=== PATIENT | female | born 1970 | race Caucasian/White ===

== ENCOUNTER 2023-10-27 22:34 | Observation (INO) | payer OTHER ==
--- NOTE | 2023-10-27 23:27 | ERPHSYRPT ---
- History of Present Illness Time Seen by Provider: 10/27/23 23:27 Historian: patient Exam Limitations: no limitations Patient Subjective Stated Complaint: pt states she has been having rt abd and rt back pain started at approx 2000 Triage Nursing Assessment: pt alert and oriented, answers questions approp. pt ambulates into room with steady gait noted. respirations nonlabored. skin warm and dry. abd soft an nontender to light palpation. bowel sounds present x4. Physician History: The patient presents with a chief complaint of severe, stabbing pains in the side, which have since subsided to a dull ache. The pain was intense enough to disrupt her comfort, necessitating pacing. The patient denies any associated di arrhea but reports mild nausea. She also mentions experiencing acid reflux. The patient has not had a similar episode in the past, although she recalls occasional pains in the same area. The timing of the pain does not appear to be associated with food intake. The patient has a known history of hypertension and a family history of diabetes. She is currently on medication for her hypertension. She also reports suffering from significant anxiety but denies any history of cardiac events. The patient's last bowel movement was reported to be normal on the day of the consultation. In addition to the above, the patient is on a maintenance antibiotic, Septra, for recurrent urinary tract infections (UTIs) as prescribed by a urologist. She denies any current dysuria or hematuria. The patient also mentions a tendency to bleed, although it is unclear if this is related to her current complaint. Timing/Duration: today Activities at Onset: sleep Quality: sharpness, stabbing Abdominal Pain Onset Location: RUQ Pain Radiation: no radiation Severity of Pain-Max: severe Severity of Pain-Current: mild Modifying Factors: Worsens With: movement, palpation, position Associated Symptoms: heartburn, loss of appetite, nausea, No back, No chest pain, No diaphoresis, No diarrhea, No fever/chills, No vomiting Allergies/Adverse Reactions: Penicillins Allergy (Unknown, Verified 10/28/23 04:19) naproxen Allergy (Verified 10/28/23 04:19) nausea prochlorperazine [From Compazine] Allergy (Verified 10/28/23 04:19) vomiting Home Medications: ALPRAZolam [Xanax 0.25 mg] 0.5 mg PO QID 03/12/16 [History] Buspirone HCl 15 mg PO TID 03/12/16 [History] Losartan Potassium 50 mg PO DAILY 03/12/16 [History] Metoprolol Tartrate 25 mg PO DAILY 03/12/16 [History] norethindrone ac-eth estradioL [Junel 1 mg-20 Mcg Tablet] 1 ea DAILY 03/12/16 [History] Cefdinir 300 mg PO DAILY 10/28/23 [History] Levothyroxine Sodium 50 Mcg [Synthroid 50 Mcg] 50 mcg PO DAILY 10/28/23 [History] PANTOPRAZOLE 40 mg Tablet [Protonix 40MG Tablet] 40 mg PO QAM 10/28/23 [History] Potassium Chloride 20 Meq [Klor-Con 20 MEQ] 40 meq PO DAILY 10/28/23 [History] Hx Tetanus, Diphtheria Vaccination/Date Given: Yes Hx Influenza Vaccination/Date Given: No Hx Pneumococcal Vaccination/Date Given: No Immunizations Up to Date: Yes Travel Risk - International Travel Have you traveled outside of the country in past 3 weeks: No - Emerging Infectious Disease Are you exhibiting symptoms associated with any current EIDs: No - Review of Systems All Other Systems: Reviewed and Negative - Past Medical History Pertinent Past Medical History: Yes GI Medical History: GERD Psycho-Social History: Anxiety Other Medical History: poly cystic kidney disease, kidney stones - Past Surgical History Past Surgical History: No - Female History Hx Last Menstrual Period: bc pill Hx Now: No - Social History Smoking Status: Never smoker Exposure to second hand smoke: No Drug Use: none Patient Lives Alone: No - Social Determinants of Health Will the patient participate in the screening: Yes Do you worry about a steady place to live?: No Do you have any problems with any of the following?: No known problems In the past 12 months,have you had to go without utilities?: No Transportation Issues: No Has anyone in your support network made you feel unsafe?: No Have you or anyone in your house had to go without enough: No - Nursing Vital Signs Nursing Vital Signs: Initial Vital Signs Temperature 97 F 10/27/23 22:48 Pulse Rate 99 H 10/27/23 22:48 Respiratory Rate 18 10/27/23 22:48 Blood Pressure 173/93 10/27/23 22:48 O2 Sat by Pulse Oximetry 100 10/27/23 22:48 Pain Scale Pain Intensity 1 - Physical Exam General Appearance: no apparent distress, obese Eye Exam: eyes nml inspection Respiratory Exam: airway intact, No respiratory distress Cardiovascular Exam: tachycardia, capillary refill <2 sec, No edema Gastrointestinal/Abdomen Exam: soft, normal bowel sounds, tenderness (ruq), distention, hepatomegaly, No guarding, No rebound Back Exam: normal inspection, No CVA tenderness Neurologic Exam: alert, oriented x 3, cooperative Skin Exam: normal color, warm, dry SpO2 Interpretation: normal SpO2: 100 O2 Delivery: Room Air - Course Nursing assessment & vital signs reviewed: Yes EKG Interpreted by Me: RATE ([id number]), Sinus Rhythm, NORMAL AXIS, NORMAL INTERVALS, NORMAL QRS, Other (inverted t wave III) - CT Exams Abdomen/Pelvis CT Interpretation: Tele-radiologist Report (multiple hepatic cysts, multiple large renal cysts, cholelithiasis) Ordered Tests: Active Orders 24 hr Category Date Time Status Call Admit Doctor for Orders ON ADMISSION Care 10/28/23 01:25 Active Code Status Order ROUTINE Care 10/28/23 01:25 Active EKG-ER Only STAT Care 10/27/23 23:28 Active IV Insertion STAT Care 10/27/23 23:[address] in Observation ROUTINE Care 10/28/23 01:25 Active NPO Diet 10/28/23 01:26 Active ABDOMEN AND PELVIS W/0 CONTRAS [CT] Stat Exams 10/27/23 23:28 Completed CBC W DIFF Stat Lab 10/27/23 23:40 Completed CMP Stat Lab 10/27/23 23:40 Completed LIPASE Stat Lab 10/27/23 23:40 Completed Lactic Acid Stat Lab 10/27/23 23:28 Completed TROPONIN Q4H Lab 10/27/23 23:40 Completed TROPONIN Q4H Lab 10/28/23 03:30 Ordered TROPONIN Q4H Lab 10/28/23 07:30 Ordered UA W/RFX UR CULTURE Stat Lab 10/27/23 23:46 Completed Medication Summary Discontinued Medications Generic Name Dose Route Start Last Admin Trade Name Freq PRN Reason Stop Dose Admin Sodium Chloride 1,000 mls @ 999 mls/hr 10/27/23 23:28 10/28/23 00:01 Sodium Chloride 0.9% 1000 Ml IV 10/28/23 00:28 999 mls/hr .Q1H1M STA Administration Sodium Chloride Confirm 10/27/23 23:47 Sodium Chloride 0.9% 1000 Ml Administered 10/27/23 23:48 Dose 1,000 mls @ ud .ROUTE .STK-MED ONE Ondansetron HCl 4 mg 10/27/23 23:28 10/28/23 00:01 Ondansetron Hcl 4 Mg/2 Ml Vial IV 10/27/23 23:29 4 mg STAT ONE Administration Ondansetron HCl Confirm 10/27/23 23:47 Ondansetron Hcl 4 Mg/2 Ml Vial Administered 10/27/23 23:48 Dose 4 mg .ROUTE .STK-MED ONE Pantoprazole Sodium 40 mg 10/27/23 23:28 10/28/23 00:01 Pantoprazole 40 Mg Vial IV 10/27/23 23:29 40 mg STAT ONE Administration Pantoprazole Sodium Confirm 10/27/23 23:47 Pantoprazole 40 Mg Vial Administered 10/27/23 23:48 Dose 40 mg IV .STK-MED ONE Lab/Rad Data: Laboratory Result Diagrams 10/27/23 23:40 10/27/23 23:40 Laboratory Results 10/27/23 10/27/23 10/27/23 Range/Units 23:46 23:40 23:40 WBC (3.98-10.04) x10^3/uL RBC (3.93-5.22) x10^6/uL Hgb (11.2-15.7) g/dL Hct (34.1-44.9) % MCV (79.4-94.8) fL MCH (25.6-32.2) pg MCHC (32.2-35.5) g/dL RDW (11.7-14.4) % Plt Count (182-369) x10^3/uL MPV (9.4-12.3) fL Gran % (34.0-71.1) % Immature Gran % (Auto) (0.001-0.429) % Nucleat RBC Rel Count (0.00-0.2) % Eos # (Auto) (0.04-0.36) x10^3/uL Immature Gran # (Auto) (0.001-0.031) x10^3u/L Absolute Lymphs (auto) (1.18-3.74) x10^3/uL Absolute Monos (auto) (0.24-0.86) x10^3/uL Absolute Nucleated RBC (0.00-0.012) x10^3u/L Lymphocytes % (19.3-51.7) % Monocytes % (4.7-12.5) % Eosinophils % (0.7-5.8) % Basophils % (0.1-1.2) % Absolute Granulocytes (1.56-6.13) x10^3/uL Basophils # (0.01-0.08) x10^3/uL Sodium 140 (135-145) mmol/L Potassium 3.5 (3.5-5.1) mmol/L Chloride 105 (98-107) mmol/L Carbon Dioxide 21 L (22-30) mmol/L Anion Gap 17.0 H (5-15) MEQ/L BUN 14 (7-17) mg/dL Creatinine 1.06 H (0.52-1.04) mg/dL Estimated GFR 63.2 ML/MIN Glucose 106 (74-106) mg/dL Lactic Acid (0.4-2.0) Calcium 10.2 (8.4-10.2) mg/dL Total Bilirubin 0.50 (0.2-1.3) mg/dL AST 27 (14-36) U/L ALT 23 (0-35) U/L Alkaline Phosphatase 129 H (38-126) U/L Troponin I < 0.012 (0.000-0.033) ng/mL Serum Total Protein 8.5 H (6.3-8.2) g/dL Albumin 4.6 (3.5-5.0) g/dL Lipase 177 (23-300) U/L Urine Color Yellow (Yellow) Urine Appearance Clear (Clear) Urine pH 5.5 (4.6-8.0) Ur Specific [place] <=1.005 (1.005-1.030) Urine Protein Negative (Negative) Urine Glucose (UA) Negative (Negative) mg/dL Urine Ketones Negative (Negative) Urine Blood Negative (Negative) Urine Nitrite Negative (Negative) Urine Bilirubin Negative (Negative) Urine Urobilinogen 0.2 (0.2) mg/dL Ur Leukocyte Esterase Negative (Negative) U Hyaline Cast (Auto) NONE SEEN (0-2) /LPF Urine Microscopic RBC 0-2 (0-5) /HPF Urine Microscopic WBC 0-2 (0-5) /HPF Ur Epithelial Cells None Seen (None Seen) /HPF Urine Bacteria None Seen (None Seen) /HPF Urine Culture Reflexed NO (NO) 10/27/23 10/27/23 Range/Units 23:40 23:28 WBC 7.6 (3.98-10.04) x10^3/uL RBC 4.97 (3.93-5.22) x10^6/uL Hgb 14.6 (11.2-15.7) g/dL Hct 45.3 H (34.1-44.9) % MCV 91.1 (79.4-94.8) fL MCH 29.4 (25.6-32.2) pg MCHC 32.2 (32.2-35.5) g/dL RDW 14.2 (11.7-14.4) % Plt Count 325 (182-369) x10^3/uL MPV 10.2 (9.4-12.3) fL Gran % 61.5 (34.0-71.1) % Immature Gran % (Auto) 0.3 (0.001-0.429) % Nucleat RBC Rel Count 0.0 (0.00-0.2) % Eos # (Auto) 0.22 (0.04-0.36) x10^3/uL Immature Gran # (Auto) 0.02 (0.001-0.031) x10^3u/L Absolute Lymphs (auto) 2.08 (1.18-3.74) x10^3/uL Absolute Monos (auto) 0.57 (0.24-0.86) x10^3/uL Absolute Nucleated RBC 0.00 (0.00-0.012) x10^3u/L Lymphocytes % 27.3 (19.3-51.7) % Monocytes % 7.5 (4.7-12.5) % Eosinophils % 2.9 (0.7-5.8) % Basophils % 0.5 (0.1-1.2) % Absolute Granulocytes 4.70 (1.56-6.13) x10^3/uL Basophils # 0.04 (0.01-0.08) x10^3/uL Sodium (135-145) mmol/L Potassium (3.5-5.1) mmol/L Chloride (98-107) mmol/L Carbon Dioxide (22-30) mmol/L Anion Gap (5-15) MEQ/L BUN (7-17) mg/dL Creatinine (0.52-1.04) mg/dL Estimated GFR ML/MIN Glucose (74-106) mg/dL Lactic Acid 1.4 (0.4-2.0) Calcium (8.4-10.2) mg/dL Total Bilirubin (0.2-1.3) mg/dL AST (14-36) U/L ALT (0-35) U/L Alkaline Phosphatase (38-126) U/L Troponin I (0.000-0.033) ng/mL Serum Total Protein (6.3-8.2) g/dL Albumin (3.5-5.0) g/dL Lipase (23-300) U/L Urine Color (Yellow) Urine Appearance (Clear) Urine pH (4.6-8.0) Ur Specific [place] (1.005-1.030) Urine Protein (Negative) Urine Glucose (UA) (Negative) mg/dL Urine Ketones (Negative) Urine Blood (Negative) Urine Nitrite (Negative) Urine Bilirubin (Negative) Urine Urobilinogen (0.2) mg/dL Ur Leukocyte Esterase (Negative) U Hyaline Cast (Auto) (0-2) /LPF Urine Microscopic RBC (0-5) /HPF Urine Microscopic WBC (0-5) /HPF Ur Epithelial Cells (None Seen) /HPF Urine Bacteria (None Seen) /HPF Urine Culture Reflexed (NO) - Progress Progress: unchanged Progress Note: Lab evaluation largely unremarkable. CT abdomen pelvis showed 7 mm gallstone at the neck. Patient has multiple hepatic cysts as well as multiple renal cysts with known history of polycystic kidney disease. The cysts are very large likely causing compression and renal pelvis enlargement. Cysts are also large enough that they are displacing the intestines without obstruction. I discussed the case with Dr. Tavera who plans to remove her gallbladder in the morning. I spoke with him at 1:13 AM. I then spoke with Dr. Sharif at 1:23 AM who agreed to admit the patient. Discussed with : Francy, Other (Sharif) Will see patient in: hospital (observation) Counseled pt/family regarding: lab results, diagnosis, need for follow-up, rad results Medical Desision Making - Diagnostic Testing Diagnostic test were ordered, analyzed, and reviewed by me: Yes Radiological Interpretation: Interpreted by me, Reviewed by me, Teleradiologist Report - Risk of complications The pt has a mod risk of morbidity or mortality based on: Need for prescription drug management The pt has a high risk of morbidity or mortality based on: Decision regarding hospitilization or escalation of hosp level of care - Departure Departure Disposition: Observation Clinical Impression: Symptomatic cholelithiasis Condition: Good Critical Care Time: No
[2023-10-27 23:47] LABS: BASOPHIL % 0.5 % (0.1-1.2); Basophil (Absolute #) 0.04 x10^3/uL (0.01-0.08); Eosinophil % 2.9 % (0.7-5.8); Eosinophil (Absolute #) 0.22 x10^3/uL (0.04-0.36); Hematocrit 45.3 % (34.1-44.9); Hemoglobin 14.6 g/dL (11.2-15.7); IMMATURE GRAN # 0.02 x10^3u/L (0.001-0.031); IMMATURE GRAN % 0.3 % (0.001-0.429); Lymphocyte (Absolute #) 2.08 x10^3/uL (1.18-3.74); Lymphocytes % 27.3 % (19.3-51.7); Mean Cell Volume 91.1 fL (79.4-94.8); Mean Corpuscular Hemoglobin 29.4 pg (25.6-32.2); Mean Corpuscular Hgb Concent. 32.2 g/dL (32.2-35.5); Mean Platelet Volume 10.2 fL (9.4-12.3); Monocyte (Absolute #) 0.57 x10^3/uL (0.24-0.86); Monocytes % 7.5 % (4.7-12.5); Neutrophil % 61.5 % (34.0-71.1); Platelet Count 325 x10^3/uL (182-369); Red Blood Count 4.97 x10^6/uL (3.93-5.22); Red Cell Distribution Width 14.2 % (11.7-14.4); White Blood Count 7.6 x10^3/uL (3.98-10.04)
[2023-10-27] MEDS ORDERED: Sodium Chloride 0.9% 1000 ML 1,000 ML ONE (23:47)
[2023-10-27] MEDS ORDERED: Zofran 4 MG/2 ML VIAL ONE (23:47)
[2023-10-27] MEDS ORDERED: PROTONIX 40 MG IV IV ONE (23:47)
[2023-10-27] MEDS: Sodium Chloride 0.9% 1000 ML 1,000 ML IV STA (23:50)
[2023-10-27] MEDS: PROTONIX 40 MG IV IV ONE (23:51)
[2023-10-27] MEDS: Zofran 4 MG/2 ML VIAL IV ONE (23:51)
[2023-10-27 23:55] LABS: ADD URINE CULTURE? NO (NO); Appearance Clear (Clear); Bacteria None Seen /HPF (None Seen); Bilirubin Negative (Negative); Blood Negative (Negative); Epithelial Cells None Seen /HPF (None Seen); Glucose, Urine Negative (Negative); Hyaline Casts NONE SEEN /LPF (0-2); Ketones Negative (Negative); Leukocyte Esterase Negative (Negative); Nitrite Negative (Negative); Ph 5.5 (4.6-8.0); Protein,Urine Dip Negative (Negative); RBC 0-2 /HPF (0-5); Specific Gravity <=1.005 (1.005-1.030); Urobilinogen 0.2 mg/dL (0.2); WBC 0-2 /HPF (0-5)
[2023-10-28] LABS: ALBUMIN 4.6 g/dL (3.5-5.0); BILIRUBIN,TOTAL 0.5 mg/dL (0.2-1.3); Calcium 10.2 mg/dL (8.4-10.2); Creatinine 1 1.06 mg/dL (0.52-1.04); EST GLOMERULAR FILTRATION RATE 63.2 ML/MIN; Potassium 3.5 mmol/L (3.5-5.1); Total Protein 8.5 g/dL (6.3-8.2)
--- NOTE | 2023-10-28 00:47 | XRAY ---
CLINICAL HISTORY: abd pain COMPARISON: No previous imaging. TECHNIQUE: Contiguous axial images were obtained from the level of the diaphragm to the pubic symphysis without intravenous or oral contrast. Coronal and sagittal reconstructions were likewise performed and indicated to increase the sensitivity for detecting clinically relevant pathology. CT scan was performed according to ALARA (as low as reasonably achievable). FINDINGS: The visualized lung bases are clear. Evaluation of the abdominal and pelvic visceral organs is limited without intravenous contrast. Multiple cysts of varying sizes in the both the lobes with some of them having exophytic component. The largest cyst in the left lobe with exophytic component measuring 11cm diameter. Thee are few cysts with shows sepate with thin calcification. There are multiple cysts of varying size in both the kidneys , predominantly in the right kidney. The largest cysts in the right kidney with exophytic component measuring 17cm. One large cyst in relation to lower pole which is pear shaped and extending upto pelvic region and mildly displaced by the another largest cyst. Both large cysts are causing bowel loop displacement to left side. No obstruction. Mild renal pelvis dilatation on right side. Left pelvis is probably dilated/parapelvic cyst. There is a calculus in the lower pole calyces measuring 6mm with approximately 1200HU. Few cysts in the uppr pole left kidney shows wall calcification. Type 1 BOSNIAK cysts on bilateral kidneys and Type 2 [place]K cysts in left side. The unenhanced spleen, pancreas, and adrenal glands are grossly unremarkable. The gallbladder is mildly compressed with exophytic cysts of adjacent liver and it shows calculus measuring 7mm in the fundus. The ureters are normal in caliber. No adenopathy or fluid collections are seen. No evidence of focal or diffuse bowel wall thickening or evidence of bowel obstruction is seen. The appendix is visualized in the right lower quadrant and appears within normal limits. The aorta is normal in caliber. The urinary bladder is normal in contour. Pelvic viscera are grossly unremarkable. No aggressive appearing osseous lesions are identified. Lumbar spondylosis with bilateral par articularis defect of L5 vertebra. IMPRESSION: 1. Multiple cysts of varying size in the liver. 2. Type 1 BOSNIAK cyts bilateral kidneys and Type 2 in the left kidney. 3. Bilateral renal pelvis dilatation with calculus in the left lower pole calyx. Further evaluation with contrast / CT urogram may be 4. Cholelithiasis. 5. 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 Electronically Signed by: Renan Brown MD. (10/28/2023 00:42:16 EDT)
--- NOTE | 2023-10-28 02:36 | PCM.HP ---
History of Present Illness - Chief Complaint Chief Complaint: symptomatic cholelithiasis Date: 10/28/23 History of Present Illness: Ms. ELLSI is a 53 year old female with a past medical history significant for hypertension, hypothyroidism and polycystic kidney disease who presents to the hospital with complaints of 10/10 abdominal pain that started around 8 p.m. today. She denies any fever/chills. No chest pain or shortness of breath. Some nausea but no vomiting or diarrhea. No dysuria, gross hematuria or foamy urine. CT abd without contrast done that demonstrated a 7 mm gallbladder stone at the fundus, and Bosniak I/II cysts within her kidneys. General surgery was notified and recommended admission for possible surgical repair. She is resting in bed, appears comfortable at this time while being hemodynamically stable. CT scan did also demonstrate cysts on her liver. - Review of Systems Constitutional: No Fever, No Chills, No Fatigue Eyes: No Vision Changes Ears, Nose, & Throat: No Nose Discharge, No Sinus Drainage Respiratory: No Cough, No Short Of Breath Cardiac: No Chest Pain, No Palpitations Abdominal/Gastrointestinal: Abdominal Pain, Nausea, No Vomiting, No Diarrhea Genitourinary Symptoms: No Dysuria, No Frequency, No Hematuria Musculoskeletal: No Fall Skin: No Rash Neurological: No Focal Weakness Psychological: No Suicidal Ideations Endocrine: No Polyuria, No Polydipsia Medications & Allergies Home Medications: Home Medication List ALPRAZolam [Xanax 0.25 mg] 0.5 mg PO QID 03/12/16 [History Confirmed 10/28/23] Buspirone HCl 15 mg PO TID 03/12/16 [History Confirmed 10/28/23] Losartan Potassium 50 mg PO DAILY 03/12/16 [History Confirmed 10/28/23] Metoprolol Tartrate 25 mg PO DAILY 03/12/16 [History Confirmed 10/28/23] norethindrone ac-eth estradioL [Junel 1 mg-20 Mcg Tablet] 1 ea DAILY 03/12/16 [History Confirmed 10/28/23] Cefdinir 300 mg PO DAILY 10/28/23 [History Confirmed 10/28/23] Levothyroxine Sodium 50 Mcg [Synthroid 50 Mcg] 50 mcg PO DAILY 10/28/23 [History Confirmed 10/28/23] PANTOPRAZOLE 40 mg Tablet [Protonix 40MG Tablet] 40 mg PO QAM 10/28/23 [History Confirmed 10/28/23] Potassium Chloride 20 Meq [Klor-Con 20 MEQ] 40 meq PO DAILY 10/28/23 [History Confirmed 10/28/23] Allergies/Adverse Reactions: Allergies Allergy/AdvReac Type Severity Reaction Status Date / Time Penicillins Allergy Unknown Verified 10/28/23 04:19 naproxen Allergy Verified 10/28/23 04:19 prochlorperazine Allergy Verified 10/28/23 04:19 [From Compazine] - Past Medical History Past Medical History: Yes GI Medical History: GERD Pyscho-Social History: Anxiety Comment: poly cystic kidney disease, kidney stones - Female History Hx Last Menstrual Period: bc pill Are you now?: No - Past Surgical History Past Surgical History: No - Social History Smoking Status: Never smoker Exposure to second hand smoke: No Alcohol: None Drug Use: none - Social Determinants of Health Will the patient participate in the screening: Yes Do you worry about a steady place to live?: No Do you have any problems with any of the following?: No known problems In the past 12 months,have you had to go without utilities?: No Have you or anyone in your house had to go without enough: No Transportation Issues: No Has anyone in your support network made you feel unsafe?: No - Physical Exam Vital Signs: Vital Signs - 24 hr Temp Pulse Resp BP BP Pulse Ox 10/28/23 01:24 100 10/28/23 01:00 82 16 173/93 99 10/28/23 00:30 78 16 168/98 100 10/27/23 22:48 97 F 99 H 18 173/93 100 General Appearance: no apparent distress Neurologic Exam: alert, No slurred speech Neck Exam: non-tender, supple Respiratory Exam: No respiratory distress Cardiovascular Exam: regular rate/rhythm Gastrointestinal/Abdomen Exam: soft Extremity Exam: No pedal edema, No swelling Skin Exam: normal color, dry, No rash Results - Labs Lab/Micro Results: Lab Results-Last 24 Hours 10/27/23 10/27/23 10/27/23 Range/Units 23:28 23:40 23:40 WBC 7.6 (3.98-10.04) x10^3/uL RBC 4.97 (3.93-5.22) x10^6/uL Hgb 14.6 (11.2-15.7) g/dL Hct 45.3 H (34.1-44.9) % MCV 91.1 (79.4-94.8) fL MCH 29.4 (25.6-32.2) pg MCHC 32.2 (32.2-35.5) g/dL RDW 14.2 (11.7-14.4) % Plt Count 325 (182-369) x10^3/uL MPV 10.2 (9.4-12.3) fL Gran % 61.5 (34.0-71.1) % Immature Gran % (Auto) 0.3 (0.001-0.429) % Nucleat RBC Rel Count 0.0 (0.00-0.2) % Eos # (Auto) 0.22 (0.04-0.36) x10^3/uL Immature Gran # (Auto) 0.02 (0.001-0.031) x10^3u/L Absolute Lymphs (auto) 2.08 (1.18-3.74) x10^3/uL Absolute Monos (auto) 0.57 (0.24-0.86) x10^3/uL Absolute Nucleated RBC 0.00 (0.00-0.012) x10^3u/L Lymphocytes % 27.3 (19.3-51.7) % Monocytes % 7.5 (4.7-12.5) % Eosinophils % 2.9 (0.7-5.8) % Basophils % 0.5 (0.1-1.2) % Absolute Granulocytes 4.70 (1.56-6.13) x10^3/uL Basophils # 0.04 (0.01-0.08) x10^3/uL Sodium 140 (135-145) mmol/L Potassium 3.5 (3.5-5.1) mmol/L Chloride 105 (98-107) mmol/L Carbon Dioxide 21 L (22-30) mmol/L Anion Gap 17.0 H (5-15) MEQ/L BUN 14 (7-17) mg/dL Creatinine 1.06 H (0.52-1.04) mg/dL Estimated GFR 63.2 ML/MIN Glucose 106 (74-106) mg/dL Lactic Acid 1.4 (0.4-2.0) Calcium 10.2 (8.4-10.2) mg/dL Total Bilirubin 0.50 (0.2-1.3) mg/dL AST 27 (14-36) U/L ALT 23 (0-35) U/L Alkaline Phosphatase 129 H (38-126) U/L Troponin I (0.000-0.033) ng/mL Serum Total Protein 8.5 H (6.3-8.2) g/dL Albumin 4.6 (3.5-5.0) g/dL Lipase 177 (23-300) U/L Urine Color (Yellow) Urine Appearance (Clear) Urine pH (4.6-8.0) Ur Specific [place] (1.005-1.030) Urine Protein (Negative) Urine Glucose (UA) (Negative) mg/dL Urine Ketones (Negative) Urine Blood (Negative) Urine Nitrite (Negative) Urine Bilirubin (Negative) Urine Urobilinogen (0.2) mg/dL Ur Leukocyte Esterase (Negative) U Hyaline Cast (Auto) (0-2) /LPF Urine Microscopic RBC (0-5) /HPF Urine Microscopic WBC (0-5) /HPF Ur Epithelial Cells (None Seen) /HPF Urine Bacteria (None Seen) /HPF Urine Culture Reflexed (NO) 10/27/23 10/27/23 Range/Units 23:40 23:46 WBC (3.98-10.04) x10^3/uL RBC (3.93-5.22) x10^6/uL Hgb (11.2-15.7) g/dL Hct (34.1-44.9) % MCV (79.4-94.8) fL MCH (25.6-32.2) pg MCHC (32.2-35.5) g/dL RDW (11.7-14.4) % Plt Count (182-369) x10^3/uL MPV (9.4-12.3) fL Gran % (34.0-71.1) % Immature Gran % (Auto) (0.001-0.429) % Nucleat RBC Rel Count (0.00-0.2) % Eos # (Auto) (0.04-0.36) x10^3/uL Immature Gran # (Auto) (0.001-0.031) x10^3u/L Absolute Lymphs (auto) (1.18-3.74) x10^3/uL Absolute Monos (auto) (0.24-0.86) x10^3/uL Absolute Nucleated RBC (0.00-0.012) x10^3u/L Lymphocytes % (19.3-51.7) % Monocytes % (4.7-12.5) % Eosinophils % (0.7-5.8) % Basophils % (0.1-1.2) % Absolute Granulocytes (1.56-6.13) x10^3/uL Basophils # (0.01-0.08) x10^3/uL Sodium (135-145) mmol/L Potassium (3.5-5.1) mmol/L Chloride (98-107) mmol/L Carbon Dioxide (22-30) mmol/L Anion Gap (5-15) MEQ/L BUN (7-17) mg/dL Creatinine (0.52-1.04) mg/dL Estimated GFR ML/MIN Glucose (74-106) mg/dL Lactic Acid (0.4-2.0) Calcium (8.4-10.2) mg/dL Total Bilirubin (0.2-1.3) mg/dL AST (14-36) U/L ALT (0-35) U/L Alkaline Phosphatase (38-126) U/L Troponin I < 0.012 (0.000-0.033) ng/mL Serum Total Protein (6.3-8.2) g/dL Albumin (3.5-5.0) g/dL Lipase (23-300) U/L Urine Color Yellow (Yellow) Urine Appearance Clear (Clear) Urine pH 5.5 (4.6-8.0) Ur Specific [place] <=1.005 (1.005-1.030) Urine Protein Negative (Negative) Urine Glucose (UA) Negative (Negative) mg/dL Urine Ketones Negative (Negative) Urine Blood Negative (Negative) Urine Nitrite Negative (Negative) Urine Bilirubin Negative (Negative) Urine Urobilinogen 0.2 (0.2) mg/dL Ur Leukocyte Esterase Negative (Negative) U Hyaline Cast (Auto) NONE SEEN (0-2) /LPF Urine Microscopic RBC 0-2 (0-5) /HPF Urine Microscopic WBC 0-2 (0-5) /HPF Ur Epithelial Cells None Seen (None Seen) /HPF Urine Bacteria None Seen (None Seen) /HPF Urine Culture Reflexed NO (NO) - Radiology Impressions Radiology Exams & Impressions: Radiology Procedures Category Date Time Status ABDOMEN AND PELVIS W/0 CONTRAS [CT] Stat Exams 10/27/23 23:28 Completed Assessment/Plan (1) Symptomatic cholelithiasis Current Visit: Yes Status: Acute Assessment & Plan: 7 mm stone at fundus of gallbladder, surgery recommends admission 1. Admit to observation status 2. Will keep NPO, start IVFs 3. Gen surgery consult for possible surgery 4. Trend LFTs Code(s): K80.20 - CALCULUS OF GALLBLADDER W/O CHOLECYSTITIS W/O OBSTRUCTION (2) Chronic kidney disease, stage 2 (mild) Current Visit: Yes Status: Acute Assessment & Plan: Creatinine 1.0 yields GFR 63 mL/min likely from PCKD/hypertensive disease with some dehydration 1. IVFs 2. Will need f/u of renal cysts for malignancy 3. Follow I/Os 4. Watch electrolytes, creatinine closely Code(s): N18.2 - CHRONIC KIDNEY DISEASE, STAGE 2 (MILD) (3) Hypertensive chronic kidney disease with stage 1 through stage 4 chronic kidney disease, or unspecified chronic kidney disease Current Visit: Yes Status: Acute Assessment & Plan: Blood pressure under reasonable control, exacerbated by pain 1. Continue bp meds 2. Low Na diet 3. Monitor blood pressure readings Code(s): I12.9 - HYPERTENSIVE CHRONIC KIDNEY DISEASE W STG 1-4/UNSP CHR KDNY (4) Polycystic kidney disease Current Visit: Yes Status: Acute Assessment & Plan: Stable with multiple Bosniak I/II cysts on both kidneys, creatinine 1.0 1. Monitor cysts for conversion to carcinoma 2. Will need further imaging as outpatient to evaluate cysts closely Code(s): Q61.3 - POLYCYSTIC KIDNEY, UNSPECIFIED Telemedicine Encounter - Telemedicine Encounter Telemedicine Encounter: "The entirety of this encounter was performed via Telemedicine" This visit was performed using real-time audio and video connection between my location and thepatients locationwith the assistance of a surrogateat the patients location. Written or verbal consent was obtained from the patient/guardian to perform this visit [facility] technology. Any patient questions regarding the telemedicine interaction were answered.
[2023-10-28] MEDS ORDERED: FEVERALL 650 MG PR PRN (04:57)
[2023-10-28] MEDS: Dextrose 5% -0.45 NaCl 1000 ML 1,000 ML IV SCH (05:08)
[2023-10-28 08:00] LABS: Absolute Neutrophil Ct (ANC) 5.57 x10^3/uL (1.56-6.13); BASOPHIL % 0.4 % (0.1-1.2); Basophil (Absolute #) 0.03 x10^3/uL (0.01-0.08); Eosinophil % 0.5 % (0.7-5.8); Eosinophil (Absolute #) 0.04 x10^3/uL (0.04-0.36); Hematocrit 35.1 % (34.1-44.9); Hemoglobin 11.8 g/dL (11.2-15.7); IMMATURE GRAN # 0.02 x10^3u/L (0.001-0.031); IMMATURE GRAN % 0.3 % (0.001-0.429); Lymphocyte (Absolute #) 1.23 x10^3/uL (1.18-3.74); Lymphocytes % 16.8 % (19.3-51.7); Mean Cell Volume 86.9 fL (79.4-94.8); Mean Corpuscular Hemoglobin 29.2 pg (25.6-32.2); Mean Corpuscular Hgb Concent. 33.6 g/dL (32.2-35.5); Mean Platelet Volume 10.6 fL (9.4-12.3); Monocyte (Absolute #) 0.41 x10^3/uL (0.24-0.86); Monocytes % 5.6 % (4.7-12.5); Neutrophil % 76.4 % (34.0-71.1); Platelet Count 320 x10^3/uL (182-369); Red Blood Count 4.04 x10^6/uL (3.93-5.22); Red Cell Distribution Width 14.4 % (11.7-14.4); White Blood Count 7.3 x10^3/uL (3.98-10.04)
[2023-10-28] MEDS: xanAX 0.5 MG PO PRN (08:13)
[2023-10-28 08:22] LABS: ALBUMIN 3.6 g/dL (3.5-5.0); ANION GAP 15.8 MEQ/L (5-15); BILIRUBIN,TOTAL 0.6 mg/dL (0.2-1.3); Calcium 9.3 mg/dL (8.4-10.2); Creatinine 1 0.95 mg/dL (0.52-1.04); EST GLOMERULAR FILTRATION RATE 72.1 ML/MIN; Potassium 4.1 mmol/L (3.5-5.1); Total Protein 6.6 g/dL (6.3-8.2)
[2023-10-28] MEDS ORDERED: ENOXAPARIN SODIUM SQ SCH (10:00)
[2023-10-28] MEDS: Zofran 4 MG/2 ML VIAL IV PRN (10:08)
[2023-10-28 12:43] VITALS: RESP 17
[2023-10-28 17:41] VITALS: BP 180/97; PULSE 101; TEMP 97.4; O2SAT 94
--- NOTE | 2023-10-28 18:24 | PCM.DS ---
Discharge Summary Date of Admission: 10/28/23 03:37 Date of Discharge: 10/28/23 Admitting Physician: SHILA WEN MD Primary Care Provider: SHAE LOGAN Allergies Allergies Penicillins Allergy (Unknown, Verified 10/28/23 04:19) naproxen Allergy (Verified 10/28/23 04:19) nausea prochlorperazine [From Compazine] Allergy (Verified 10/28/23 04:19) vomiting Hospital Summary - Hospital Course Hospital Course: Ms. ELLIS is a 53 year old female with a past medical history significant for hypertension, hypothyroidism and polycystic kidney disease who presents to the hospital with complaints of 10/10 abdominal pain that started around 8 p.m. today. She denies any fever/chills. No chest pain or shortness of breath. Some nausea but no vomiting or diarrhea. No dysuria, gross hematuria or foamy urine. CT abd without contrast done that demonstrated a 7 mm gallbladder stone at the fundus, and Bosniak I/II cysts within her kidneys. General surgery was notified and recommended admission for possible surgical repair. She is resting in bed, appears comfortable at this time while being hemodynamically stable. CT scan did also demonstrate cysts on her liver. Surgery consulted, plan for outpatient surgery. Patient to call Sunday for appointment. Pain has resolved. No nausea/vomiting. Patient cleared by surgery and stable for discharge. Discharge Note New Diagnosis: Cholelithiasis New Medications: none Follow Up: PCP Results pending: none Latest Assessment & Plan (1) Symptomatic cholelithiasis Current Visit: Yes Status: Acute Assessment & Plan: 7 mm stone at fundus of gallbladder, surgery recommends admission 1. Admit to observation status 2. Will keep NPO, start IVFs 3. Gen surgery consult for possible surgery 4. Trend LFTs Code(s): K80.20 - CALCULUS OF GALLBLADDER W/O CHOLECYSTITIS W/O OBSTRUCTION (2) Chronic kidney disease, stage 2 (mild) Current Visit: Yes Status: Acute Assessment & Plan: Creatinine 1.0 yields GFR 63 mL/min likely from PCKD/hypertensive disease with some dehydration 1. IVFs 2. Will need f/u of renal cysts for malignancy 3. Follow I/Os 4. Watch electrolytes, creatinine closely Code(s): N18.2 - CHRONIC KIDNEY DISEASE, STAGE 2 (MILD) (3) Hypertensive chronic kidney disease with stage 1 through stage 4 chronic kidney disease, or unspecified chronic kidney disease Current Visit: Yes Status: Acute Assessment & Plan: Blood pressure under reasonable control, exacerbated by pain 1. Continue bp meds 2. Low Na diet 3. Monitor blood pressure readings Code(s): I12.9 - HYPERTENSIVE CHRONIC KIDNEY DISEASE W STG 1-4/UNSP CHR KDNY (4) Polycystic kidney disease Current Visit: Yes Status: Acute Assessment & Plan: Stable with multiple Bosniak I/II cysts on both kidneys, creatinine 1.0 1. Monitor cysts for conversion to carcinoma 2. Will need further imaging as outpatient to evaluate cysts closely I spent 35 minutes [id number] with the patient on the day of discharge performing discharge exam, discussing hospital stay and discharge instructions with patient and caregivers, preparation of discharge records, prescriptions & referral forms and addressing any questions/concerns the patient had as docu mented above. - Vitals & Intake/Output Vital Signs: Vital Signs Temperature 97.4 F 10/28/23 16:00 Pulse Rate 101 H 10/28/23 16:00 Respiratory Rate 17 10/28/23 16:00 Blood Pressure 180/97 10/28/23 16:00 O2 Sat by Pulse Oximetry 94 L 10/28/23 16:00 Intake & Output: Intake & Output 10/26/23 10/27/23 10/28/23 10/29/23 11:59 11:59 11:59 11:59 Intake Total 0 Balance 0 Weight 77.5 kg - Lab Result Diagrams: 10/28/23 05:28 10/28/23 05:28 Lab Results-Last 24 Hrs: Lab Results-Last 24 Hours 10/27/23 10/27/23 10/27/23 Range/Units 23:28 23:40 23:40 WBC 7.6 (3.98-10.04) x10^3/uL RBC 4.97 (3.93-5.22) x10^6/uL Hgb 14.6 (11.2-15.7) g/dL Hct 45.3 H (34.1-44.9) % MCV 91.1 (79.4-94.8) fL MCH 29.4 (25.6-32.2) pg MCHC 32.2 (32.2-35.5) g/dL RDW 14.2 (11.7-14.4) % Plt Count 325 (182-369) x10^3/uL MPV 10.2 (9.4-12.3) fL Gran % 61.5 (34.0-71.1) % Immature Gran % (Auto) 0.3 (0.001-0.429) % Nucleat RBC Rel Count 0.0 (0.00-0.2) % Eos # (Auto) 0.22 (0.04-0.36) x10^3/uL Immature Gran # (Auto) 0.02 (0.001-0.031) x10^3u/L Absolute Lymphs (auto) 2.08 (1.18-3.74) x10^3/uL Absolute Monos (auto) 0.57 (0.24-0.86) x10^3/uL Absolute Nucleated RBC 0.00 (0.00-0.012) x10^3u/L Lymphocytes % 27.3 (19.3-51.7) % Monocytes % 7.5 (4.7-12.5) % Eosinophils % 2.9 (0.7-5.8) % Basophils % 0.5 (0.1-1.2) % Absolute Granulocytes 4.70 (1.56-6.13) x10^3/uL Basophils # 0.04 (0.01-0.08) x10^3/uL Sodium 140 (135-145) mmol/L Potassium 3.5 (3.5-5.1) mmol/L Chloride 105 (98-107) mmol/L Carbon Dioxide 21 L (22-30) mmol/L Anion Gap 17.0 H (5-15) MEQ/L BUN 14 (7-17) mg/dL Creatinine 1.06 H (0.52-1.04) mg/dL Estimated GFR 63.2 ML/MIN Glucose 106 (74-106) mg/dL POC Glucometer (74 to 106) mg/dL Hemoglobin A1c (4.5-6.0) % Lactic Acid 1.4 (0.4-2.0) Calcium 10.2 (8.4-10.2) mg/dL Total Bilirubin 0.50 (0.2-1.3) mg/dL AST 27 (14-36) U/L ALT 23 (0-35) U/L Alkaline Phosphatase 129 H (38-126) U/L Troponin I (0.000-0.033) ng/mL Serum Total Protein 8.5 H (6.3-8.2) g/dL Albumin 4.6 (3.5-5.0) g/dL Lipase 177 (23-300) U/L Urine Color (Yellow) Urine Appearance (Clear) Urine pH (4.6-8.0) Ur Specific [place] (1.005-1.030) Urine Protein (Negative) Urine Glucose (UA) (Negative) mg/dL Urine Ketones (Negative) Urine Blood (Negative) Urine Nitrite (Negative) Urine Bilirubin (Negative) Urine Urobilinogen (0.2) mg/dL Ur Leukocyte Esterase (Negative) U Hyaline Cast (Auto) (0-2) /LPF Urine Microscopic RBC (0-5) /HPF Urine Microscopic WBC (0-5) /HPF Ur Epithelial Cells (None Seen) /HPF Urine Bacteria (None Seen) /HPF Urine Culture Reflexed (NO) 10/27/23 10/27/23 10/28/23 Range/Units 23:40 23:46 04:15 WBC (3.98-10.04) x10^3/uL RBC (3.93-5.22) x10^6/uL Hgb (11.2-15.7) g/dL Hct (34.1-44.9) % MCV (79.4-94.8) fL MCH (25.6-32.2) pg MCHC (32.2-35.5) g/dL RDW (11.7-14.4) % Plt Count (182-369) x10^3/uL MPV (9.4-12.3) fL Gran % (34.0-71.1) % Immature Gran % (Auto) (0.001-0.429) % Nucleat RBC Rel Count (0.00-0.2) % Eos # (Auto) (0.04-0.36) x10^3/uL Immature Gran # (Auto) (0.001-0.031) x10^3u/L Absolute Lymphs (auto) (1.18-3.74) x10^3/uL Absolute Monos (auto) (0.24-0.86) x10^3/uL Absolute Nucleated RBC (0.00-0.012) x10^3u/L Lymphocytes % (19.3-51.7) % Monocytes % (4.7-12.5) % Eosinophils % (0.7-5.8) % Basophils % (0.1-1.2) % Absolute Granulocytes (1.56-6.13) x10^3/uL Basophils # (0.01-0.08) x10^3/uL Sodium (135-145) mmol/L Potassium (3.5-5.1) mmol/L Chloride (98-107) mmol/L Carbon Dioxide (22-30) mmol/L Anion Gap (5-15) MEQ/L BUN (7-17) mg/dL Creatinine (0.52-1.04) mg/dL Estimated GFR ML/MIN Glucose (74-106) mg/dL POC Glucometer (74 to 106) mg/dL Hemoglobin A1c (4.5-6.0) % Lactic Acid (0.4-2.0) Calcium (8.4-10.2) mg/dL Total Bilirubin (0.2-1.3) mg/dL AST (14-36) U/L ALT (0-35) U/L Alkaline Phosphatase (38-126) U/L Troponin I < 0.012 < 0.012 (0.000-0.033) ng/mL Serum Total Protein (6.3-8.2) g/dL Albumin (3.5-5.0) g/dL Lipase (23-300) U/L Urine Color Yellow (Yellow) Urine Appearance Clear (Clear) Urine pH 5.5 (4.6-8.0) Ur Specific [place] <=1.005 (1.005-1.030) Urine Protein Negative (Negative) Urine Glucose (UA) Negative (Negative) mg/dL Urine Ketones Negative (Negative) Urine Blood Negative (Negative) Urine Nitrite Negative (Negative) Urine Bilirubin Negative (Negative) Urine Urobilinogen 0.2 (0.2) mg/dL Ur Leukocyte Esterase Negative (Negative) U Hyaline Cast (Auto) NONE SEEN (0-2) /LPF Urine Microscopic RBC 0-2 (0-5) /HPF Urine Microscopic WBC 0-2 (0-5) /HPF Ur Epithelial Cells None Seen (None Seen) /HPF Urine Bacteria None Seen (None Seen) /HPF Urine Culture Reflexed NO (NO) 10/28/23 10/28/23 10/28/23 Range/Units 05:28 05:28 05:28 WBC 7.3 (3.98-10.04) x10^3/uL RBC 4.04 (3.93-5.22) x10^6/uL Hgb 11.8 (11.2-15.7) g/dL Hct 35.1 (34.1-44.9) % MCV 86.9 (79.4-94.8) fL MCH 29.2 (25.6-32.2) pg MCHC 33.6 (32.2-35.5) g/dL RDW 14.4 (11.7-14.4) % Plt Count 320 (182-369) x10^3/uL MPV 10.6 (9.4-12.3) fL Gran % 76.4 H (34.0-71.1) % Immature Gran % (Auto) 0.3 (0.001-0.429) % Nucleat RBC Rel Count 0.0 (0.00-0.2) % Eos # (Auto) 0.04 (0.04-0.36) x10^3/uL Immature Gran # (Auto) 0.02 (0.001-0.031) x10^3u/L Absolute Lymphs (auto) 1.23 (1.18-3.74) x10^3/uL Absolute Monos (auto) 0.41 (0.24-0.86) x10^3/uL Absolute Nucleated RBC 0.00 (0.00-0.012) x10^3u/L Lymphocytes % 16.8 L (19.3-51.7) % Monocytes % 5.6 (4.7-12.5) % Eosinophils % 0.5 L (0.7-5.8) % Basophils % 0.4 (0.1-1.2) % Absolute Granulocytes 5.57 (1.56-6.13) x10^3/uL Basophils # 0.03 (0.01-0.08) x10^3/uL Sodium 140 (135-145) mmol/L Potassium 4.1 (3.5-5.1) mmol/L Chloride 108 H (98-107) mmol/L Carbon Dioxide 21 L (22-30) mmol/L Anion Gap 15.8 H (5-15) MEQ/L BUN 12 (7-17) mg/dL Creatinine 0.95 (0.52-1.04) mg/dL Estimated GFR 72.1 ML/MIN Glucose 108 H (74-106) mg/dL POC Glucometer (74 to 106) mg/dL Hemoglobin A1c (4.5-6.0) % Lactic Acid (0.4-2.0) Calcium 9.3 (8.4-10.2) mg/dL Total Bilirubin 0.60 (0.2-1.3) mg/dL AST 19 (14-36) U/L ALT 17 (0-35) U/L Alkaline Phosphatase 104 (38-126) U/L Troponin I < 0.012 (0.000-0.033) ng/mL Serum Total Protein 6.6 (6.3-8.2) g/dL Albumin 3.6 (3.5-5.0) g/dL Lipase (23-300) U/L Urine Color (Yellow) Urine Appearance (Clear) Urine pH (4.6-8.0) Ur Specific [place] (1.005-1.030) Urine Protein (Negative) Urine Glucose (UA) (Negative) mg/dL Urine Ketones (Negative) Urine Blood (Negative) Urine Nitrite (Negative) Urine Bilirubin (Negative) Urine Urobilinogen (0.2) mg/dL Ur Leukocyte Esterase (Negative) U Hyaline Cast (Auto) (0-2) /LPF Urine Microscopic RBC (0-5) /HPF Urine Microscopic WBC (0-5) /HPF Ur Epithelial Cells (None Seen) /HPF Urine Bacteria (None Seen) /HPF Urine Culture Reflexed (NO) 10/28/23 10/28/23 10/28/23 Range/Units 05:42 07:28 10:14 WBC (3.98-10.04) x10^3/uL RBC (3.93-5.22) x10^6/uL Hgb (11.2-15.7) g/dL Hct (34.1-44.9) % MCV (79.4-94.8) fL MCH (25.6-32.2) pg MCHC (32.2-35.5) g/dL RDW (11.7-14.4) % Plt Count (182-369) x10^3/uL MPV (9.4-12.3) fL Gran % (34.0-71.1) % Immature Gran % (Auto) (0.001-0.429) % Nucleat RBC Rel Count (0.00-0.2) % Eos # (Auto) (0.04-0.36) x10^3/uL Immature Gran # (Auto) (0.001-0.031) x10^3u/L Absolute Lymphs (auto) (1.18-3.74) x10^3/uL Absolute Monos (auto) (0.24-0.86) x10^3/uL Absolute Nucleated RBC (0.00-0.012) x10^3u/L Lymphocytes % (19.3-51.7) % Monocytes % (4.7-12.5) % Eosinophils % (0.7-5.8) % Basophils % (0.1-1.2) % Absolute Granulocytes (1.56-6.13) x10^3/uL Basophils # (0.01-0.08) x10^3/uL Sodium (135-145) mmol/L Potassium (3.5-5.1) mmol/L Chloride (98-107) mmol/L Carbon Dioxide (22-30) mmol/L Anion Gap (5-15) MEQ/L BUN (7-17) mg/dL Creatinine (0.52-1.04) mg/dL Estimated GFR ML/MIN Glucose (74-106) mg/dL POC Glucometer 122 H 116 H (74 to 106) mg/dL Hemoglobin A1c 5.42 (4.5-6.0) % Lactic Acid (0.4-2.0) Calcium (8.4-10.2) mg/dL Total Bilirubin (0.2-1.3) mg/dL AST (14-36) U/L ALT (0-35) U/L Alkaline Phosphatase (38-126) U/L Troponin I (0.000-0.033) ng/mL Serum Total Protein (6.3-8.2) g/dL Albumin (3.5-5.0) g/dL Lipase (23-300) U/L Urine Color (Yellow) Urine Appearance (Clear) Urine pH (4.6-8.0) Ur Specific [place] (1.005-1.030) Urine Protein (Negative) Urine Glucose (UA) (Negative) mg/dL Urine Ketones (Negative) Urine Blood (Negative) Urine Nitrite (Negative) Urine Bilirubin (Negative) Urine Urobilinogen (0.2) mg/dL Ur Leukocyte Esterase (Negative) U Hyaline Cast (Auto) (0-2) /LPF Urine Microscopic RBC (0-5) /HPF Urine Microscopic WBC (0-5) /HPF Ur Epithelial Cells (None Seen) /HPF Urine Bacteria (None Seen) /HPF Urine Culture Reflexed (NO) 10/28/23 10/28/23 Range/Units 11:53 16:42 WBC (3.98-10.04) x10^3/uL RBC (3.93-5.22) x10^6/uL Hgb (11.2-15.7) g/dL Hct (34.1-44.9) % MCV (79.4-94.8) fL MCH (25.6-32.2) pg MCHC (32.2-35.5) g/dL RDW (11.7-14.4) % Plt Count (182-369) x10^3/uL MPV (9.4-12.3) fL Gran % (34.0-71.1) % Immature Gran % (Auto) (0.001-0.429) % Nucleat RBC Rel Count (0.00-0.2) % Eos # (Auto) (0.04-0.36) x10^3/uL Immature Gran # (Auto) (0.001-0.031) x10^3u/L Absolute Lymphs (auto) (1.18-3.74) x10^3/uL Absolute Monos (auto) (0.24-0.86) x10^3/uL Absolute Nucleated RBC (0.00-0.012) x10^3u/L Lymphocytes % (19.3-51.7) % Monocytes % (4.7-12.5) % Eosinophils % (0.7-5.8) % Basophils % (0.1-1.2) % Absolute Granulocytes (1.56-6.13) x10^3/uL Basophils # (0.01-0.08) x10^3/uL Sodium (135-145) mmol/L Potassium (3.5-5.1) mmol/L Chloride (98-107) mmol/L Carbon Dioxide (22-30) mmol/L Anion Gap (5-15) MEQ/L BUN (7-17) mg/dL Creatinine (0.52-1.04) mg/dL Estimated GFR ML/MIN Glucose (74-106) mg/dL POC Glucometer 102 104 (74 to 106) mg/dL Hemoglobin A1c (4.5-6.0) % Lactic Acid (0.4-2.0) Calcium (8.4-10.2) mg/dL Total Bilirubin (0.2-1.3) mg/dL AST (14-36) U/L ALT (0-35) U/L Alkaline Phosphatase (38-126) U/L Troponin I (0.000-0.033) ng/mL Serum Total Protein (6.3-8.2) g/dL Albumin (3.5-5.0) g/dL Lipase (23-300) U/L Urine Color (Yellow) Urine Appearance (Clear) Urine pH (4.6-8.0) Ur Specific [place] (1.005-1.030) Urine Protein (Negative) Urine Glucose (UA) (Negative) mg/dL Urine Ketones (Negative) Urine Blood (Negative) Urine Nitrite (Negative) Urine Bilirubin (Negative) Urine Urobilinogen (0.2) mg/dL Ur Leukocyte Esterase (Negative) U Hyaline Cast (Auto) (0-2) /LPF Urine Microscopic RBC (0-5) /HPF Urine Microscopic WBC (0-5) /HPF Ur Epithelial Cells (None Seen) /HPF Urine Bacteria (None Seen) /HPF Urine Culture Reflexed (NO) Micro Results-Entire Visit: Accuchecks Date 10/28/23 Date 10/28/23 Time 13:52 Time 07:47 - Radiology Exams Ordered Rad Exams-Entire Visit: Radiology Procedures Category Date Time Status ABDOMEN AND PELVIS W/0 CONTRAS [CT] Stat Exams 10/27/23 23:28 Completed - Procedures and Test Procedures and Tests throughout Hospitalization: Therapy Orders & Screens 10/28/23 04:05 Respiratory Therapy Consult ONCE Comment: Reason For Exam: Diagnosis: symptomatic cholelithiasis Discharge Exam General Appearance: no apparent distress Neurologic Exam: alert, oriented x 3, cooperative Eye Exam: PERRL Ears, Nose, Throat Exam: normal ENT inspection Neck Exam: normal inspection Respiratory Exam: normal breath sounds, lungs clear Cardiovascular Exam: regular rate/rhythm, normal heart sounds Gastrointestinal/Abdomen Exam: soft, normal bowel sounds, tenderness Pelvic Exam: deferred Rectal Exam: deferred Back Exam: normal inspection Extremity Exam: normal inspection Skin Exam: normal color Final Diagnosis/Problem List - Final Discharge Diagnosis/Problem (1) Symptomatic cholelithiasis Current Visit: Yes Status: Acute Code(s): K80.20 - CALCULUS OF GALLBLADDER W/O CHOLECYSTITIS W/O OBSTRUCTION (2) Chronic kidney disease, stage 2 (mild) Current Visit: Yes Status: Chronic Code(s): N18.2 - CHRONIC KIDNEY DISEASE, STAGE 2 (MILD) (3) Hypertensive chronic kidney disease with stage 1 through stage 4 chronic kidney disease, or unspecified chronic kidney disease Current Visit: Yes Status: Chronic Code(s): I12.9 - HYPERTENSIVE CHRONIC KIDNEY DISEASE W STG 1-4/UNSP CHR KDNY (4) Polycystic kidney disease Current Visit: Yes Status: Chronic Code(s): Q61.3 - POLYCYSTIC KIDNEY, UN SPECIFIED - Discharge Disposition: Home, Self-Care Condition: Good Prescriptions: Continue Metoprolol Tartrate 25 mg PO DAILY ALPRAZolam [Xanax 0.25 mg] 0.5 mg PO QID Buspirone HCl 15 mg PO TID Losartan Potassium 50 mg PO DAILY norethindrone ac-eth estradioL [Junel 1 mg-20 Mcg Tablet] 1 ea DAILY Levothyroxine Sodium 50 Mcg [Synthroid 50 Mcg] 50 mcg PO DAILY PANTOPRAZOLE 40 mg Tablet [Protonix 40MG Tablet] 40 mg PO QAM Potassium Chloride 20 Meq [Klor-Con 20 MEQ] 40 meq PO DAILY Cefdinir 300 mg PO DAILY Follow up with: SHAE LOGAN PA [Primary Care Provider] - RICKI TUCKER [ACTIVE STAFF] - (Call Sunday for appointment)
--- NOTE | 2023-10-29 08:43 | CONS ---
REASON FOR CONSULTATION: Cholelithiasis. HISTORY: The patient has symptomatic cholelithiasis. She may have had an acute attack. Her pain was a little low. It did radiate to the scapula. 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 A ayla discussion concerning laparoscopic cholecystectomy. There is a little risk for the cysts but all in all, it probably should work out. It probably would be a good idea to do this during an elective shift when there are extra helpers, blood bank is open, and just during the working phase. It is a little interesting with her polycystic disease and it might be a negative thing operating on the weekend if not necessary. Otherwise, she is basically healthy. She is in her early 50s. She has no medical problems. Her renal creatinine clearance is still in the 70% despite the cystic disease. PLAN: She could call the office to schedule this at [facility] for a laparoscopic cholecystectomy for symptomatic stone disease.
== END 2023-10-28 18:59 | disposition home or self-care (01) ==
LOC: ED 22:34 → MED SURG 10-28 03:37
PROVIDERS: ADMIT Internal Medicine Nephrology; ATTEND Internal Medicine Nephrology
DX: K80.20 Calculus of gallbladder without cholecystitis without obstruction (principal); I12.9 Hypertensive chronic kidney disease with stage 1 through stage 4 chronic kidney disease, or unspecified chronic kidney disease; N18.2 Chronic kidney disease, stage 2 (mild); Q61.3 Polycystic kidney, unspecified; F41.9 Anxiety disorder, unspecified; E03.9 Hypothyroidism, unspecified; Z79.899 Other long term (current) drug therapy
CPT/HCPCS: 36000; 36415; 74176; 80053; 81001; 82947; 83036; 83605; 83690; 84484; 85025; 93005; 96374; 99285; Q3014; G0378; J2405; A9270-GY

== ENCOUNTER 2023-11-27 19:50 | Emergency (ER) | payer OTHER ==
[2023-11-27 20:02] VITALS: TEMP 98.6; O2SAT 100
--- NOTE | 2023-11-27 20:29 | ERPHSYRPT ---
- History of Present Illness Time Seen by Provider: 11/27/23 20:00 Source: patient Exam Limitations: no limitations Patient Subjective Stated Complaint: htn, 190/110 at home, Dr. Tavera cancelled her gb surgery for this due to htn Triage Nursing Assessment: pt ambulated into ER without diff, daughter at bedside. Pt is very anxious and is aware of it, has a hx of htn. Pt c/o htn x2 weeks. Pt saw CARDIAC EXERCISE SPECIALIST today but nothing was done for her b/p. Pt took b/p at home and it was 190/110, so pt came in to be checked. Pt was scheduled to have her gb removed from Dr. Tavera on this but they cancelled the procedure due to her b/p. Physician History: 53-year-old female presents to our ED for evaluation of asymptomatic hypertension. Appears very anxious. Patient checked her blood pressure at home and reports it was 190/110. Patient states she was post have gallbladder surgery on 5 days ago but it was canceled due to high blood pressure. Patient followed up with her nurse practitioner regarding her blood pressure but states that she disagreed with the nurse practitioners management. Patient reports the nurse practitioner wanted to give her a beta-dashawn but patient felt that it would cause more harm than good. Patient reports she is here because her daughter who is an RN advised her to come to our ED for an evaluation. No pain no chest pain no shortness of breath no nausea vomiting or diaphoresis no headache. No nosebleeds. Patient is not having any symptomology at this time. She voices no other complaints or concerns at this time. Portions of this note were created with voice recognition technology. There may be grammatical, spelling, punctuation or sound alike errors Timing/Duration: day(s) (5 days) Severity: moderate Modifying Factors: Improves With: nothing Associated Symptoms: denies symptoms Allergies/Adverse Reactions: Penicillins Allergy (Unknown, Verified 11/27/23 20:15) amlodipine [From Norvasc] Allergy (Verified 11/27/23 20:15) lisinopril Allergy (Verified 11/27/23 20:16) naproxen Allergy (Verified 11/27/23 20:15) nausea prochlorperazine [From Compazine] Allergy (Verified 11/27/23 20:15) vomiting Home Medications: ALPRAZolam [Xanax 0.25 mg] 0.5 mg PO QID 03/12/16 [History] Buspirone HCl 15 mg PO TID 03/12/16 [History] Losartan Potassium 50 mg PO QAM 03/12/16 [History] Metoprolol Tartrate 12.5 mg PO BID 03/12/16 [History] norethindrone ac-eth estradioL [Junel 1 mg-20 Mcg Tablet] 1 ea PO DAILY 03/12/16 [History] Cefdinir 300 mg PO DAILY 10/28/23 [History] Levothyroxine Sodium 50 Mcg [Synthroid 50 Mcg] 50 mcg PO DAILY 10/28/23 [History] Losartan Potassium 25 mg PO HS 10/28/23 [History] PANTOPRAZOLE 40 mg Tablet [Protonix 40MG Tablet] 40 mg PO QAM 10/28/23 [History] Potassium Chloride 20 Meq [Klor-Con 20 MEQ] 40 meq PO DAILY 10/28/23 [History] Hx Tetanus, Diphtheria Vaccination/Date Given: Yes Hx Influenza Vaccination/Date Given: No Hx Pneumococcal Vaccination/Date Given: No Immunizations Up to Date: Yes Travel Risk - International Travel Have you traveled outside of the country in past 3 weeks: No - Emerging Infectious Disease Are you exhibiting symptoms associated with any current EIDs: No Symptoms: Abdominal Pain - Review of Systems Constitutional: No Symptoms, No Fever, No Chills Eyes: No Symptoms Ears, Nose, & Throat: No Symptoms Respiratory: No Symptoms, No Cough, No Dyspnea Cardiac: No Symptoms, No Chest Pain, No Edema, No Syncope Abdominal/Gastrointestinal: No Symptoms, No Abdominal Pain, No Nausea, No Vomiting, No Diarrhea Genitourinary Symptoms: No Symptoms, No Dysuria Musculoskeletal: No Symptoms, No Back Pain, No Neck Pain Skin: No Symptoms, No Rash Neurological: No Symptoms, No Dizziness, No Focal Weakness, No Sensory Changes Psychological: No Symptoms Endocrine: No Symptoms Hematologic/Lymphatic: No Symptoms Immunological/Allergic: No Symptoms All Other Systems: Reviewed and Negative - Past Medical History Pertinent Past Medical History: Yes Neurological History: No Pertinent History ENT History: No Pertinent History Cardiac History: Hypertension Respiratory History: No Pertinent History Endocrine Medical History: No Pertinent History Musculoskeletal History: No Pertinent History GI Medical History: GERD, Gallbladder Disease History: Other Psycho-Social History: Anxiety Female Reproductive Disorders: No Pertinent History Other Medical History: poly cystic kidney disease, kidney stones, free floating cysts to abd area - Past Surgical History Past Surgical History: No Neuro Surgical History: No Pertinent History Cardiac: No Pertinent History Respiratory: No Pertinent History Gastrointestinal: No Pertinent History Genitourinary: No Pertinent History Musculoskeletal: No Pertinent History Female Surgical History: No Pertinent History - Female History Hx Last Menstrual Period: . Hx Now: No - Social History Smoking Status: Never smoker Exposure to second hand smoke: No Drug Use: none Patient Lives Alone: No - Social Determinants of Health Will the patient participate in the screening: Yes Do you worry about a steady place to live?: No Do you have any problems with any of the following?: No known problems In the past 12 months,have you had to go without utilities?: No Transportation Issues: No Has anyone in your support network made you feel unsafe?: No Have you or anyone in your house had to go without enough: No - Nursing Vital Signs Nursing Vital Signs: Initial Vital Signs Temperature 98.6 F 11/27/23 19:59 Pulse Rate 88 11/27/23 19:59 Respiratory Rate 18 11/27/23 19:59 Blood Pressure 180/95 11/27/23 19:59 O2 Sat by Pulse Oximetry 100 11/27/23 19:59 Pain Scale Pain Intensity 0 - Physical Exam General Appearance: no apparent distress, alert Eye Exam: PERRL/EOMI, eyes nml inspection Ears, Nose, Throat Exam: normal ENT inspection, TMs normal, pharynx normal, moist mucous membranes Neck Exam: normal inspection, non-tender, supple, full range of motion Respiratory Exam: normal breath sounds, lungs clear, airway intact, No respiratory distress Cardiovascular Exam: regular rate/rhythm, normal heart sounds, normal peripheral pulses Gastrointestinal/Abdomen Exam: soft, normal bowel sounds, No tenderness, No mass Back Exam: normal inspection, normal range of motion, No CVA tenderness, No vertebral tenderness Extremity Exam: normal inspection, normal range of motion, pelvis stable Neurologic Exam: alert, oriented x 3, cooperative, normal mood/affect, sensation nml, No motor deficits Skin Exam: normal color, warm, dry, No rash Lymphatic Exam: No adenopathy SpO2 Interpretation: normal SpO2: 100 O2 Delivery: Room Air - Course Nursing assessment & vital signs reviewed: Yes EKG Interpreted by Me: RATE ([id number]), Sinus Rhythm, Left [place] Deviation, NORMAL INTERVALS, NORMAL QRS Ordered Tests: Active Orders 24 hr Category Date Time Status EKG-ER Only STAT Care 11/27/23 20:37 Active CBC W DIFF Stat Lab 11/27/23 20:55 Completed CMP Stat Lab 11/27/23 20:55 Completed TROPONIN Q4H Lab 11/27/23 20:55 Completed TROPONIN Q4H Lab 11/28/23 01:00 Ordered TROPONIN Q4H Lab 11/28/23 05:00 Ordered Lab/Rad Data: Laboratory Result Diagrams 11/27/23 20:55 11/27/23 20:55 Laboratory Results 11/27/23 11/27/23 11/27/23 Range/Units 20:55 20:55 20:55 WBC 6.3 (3.98-10.04) x10^3/uL RBC 4.35 (3.93-5.22) x10^6/uL Hgb 12.6 (11.2-15.7) g/dL Hct 37.9 (34.1-44.9) % MCV 87.1 (79.4-94.8) fL MCH 29.0 (25.6-32.2) pg MCHC 33.2 (32.2-35.5) g/dL RDW 14.5 H (11.7-14.4) % Plt Count 281 (182-369) x10^3/uL MPV 10.0 (9.4-12.3) fL Gran % 71.9 H (34.0-71.1) % Immature Gran % (Auto) 0.3 (0.001-0.429) % Nucleat RBC Rel Count 0.0 (0.00-0.2) % Eos # (Auto) 0.09 (0.04-0.36) x10^3/uL Immature Gran # (Auto) 0.02 (0.001-0.031) x10^3u/L Absolute Lymphs (auto) 1.16 L (1.18-3.74) x10^3/uL Absolute Monos (auto) 0.47 (0.24-0.86) x10^3/uL Absolute Nucleated RBC 0.00 (0.00-0.012) x10^3u/L Lymphocytes % 18.4 L (19.3-51.7) % Monocytes % 7.5 (4.7-12.5) % Eosinophils % 1.4 (0.7-5.8) % Basophils % 0.5 (0.1-1.2) % Absolute Granulocytes 4.52 (1.56-6.13) x10^3/uL Basophils # 0.03 (0.01-0.08) x10^3/uL Sodium 139 (135-145) mmol/L Potassium 3.8 (3.5-5.1) mmol/L Chloride 106 (98-107) mmol/L Carbon Dioxide 23 (22-30) mmol/L Anion Gap 13.5 (5-15) MEQ/L BUN 13 (7-17) mg/dL Creatinine 1.02 (0.52-1.04) mg/dL Estimated GFR 66.2 ML/MIN Glucose 95 (74-106) mg/dL Calcium 9.5 (8.4-10.2) mg/dL Total Bilirubin 0.40 (0.2-1.3) mg/dL AST 23 (14-36) U/L ALT 21 (0-35) U/L Alkaline Phosphatase 114 (38-126) U/L Troponin I < 0.012 (0.000-0.033) ng/mL Serum Total Protein 7.1 (6.3-8.2) g/dL Albumin 4.1 (3.5-5.0) g/dL - Progress Progress: improved Progress Note: 53-year-old female presents to our ED for evaluation of high blood pressure otherwise asymptomatic. Patient appeared very anxious upon arrival to our ED. Blood work obtained. Patient vitals were monitored. Patient's blood pressure decreased down to the 130 systolic spontaneously once patient calm down. Laboratory workup essentially nonremarkable. Troponin negative. EKG sinus rhythm. Patient reassessed. She is calm. Patient admits that she has a problem with anxiety. No indication for further workup will discharge patient home. Patient agrees to follow-up with a primary care doctor within 48 hours for reevaluation. Portions of this note were created with voice recognition technology. There may be grammatical, spelling, punctuation or sound alike errors Complexity of problem addressed is moderate acute complicated. No critical care time. Complex of data reviewed and analyzed is moderate. Test ordered test reviewed results analyzed and correlated clinically with history and physical exam. Risk of complication and or risk of morbidity/mortality patient management is low. Vital stable. Time spent to discharge patient approximately 20 minutes. Plan of care established for shared decision making. No social determinants of health present to impede follow-up. Portions of this note were created with voice recognition technology. There may be grammatical, spelling, punctuation or sound alike errors 11/27/23 21:33 Counseled pt/family regarding: lab results, diagnosis, need for follow-up - Departure Departure Disposition: Home Clinical Impression: Encounter for medical screening examination, Anxiety Condition: Stable Critical Care Time: No Referrals: SHAE LOGAN PA [Primary Care Provider] - Follow up/PCP as directed Additional Instructions: Discharge/Care Plan ABDI ELLIS was seen on 11/27/23 in the Emergency Room. The patient was counseled regarding Diagnosis,Lab results, Imaging studies, need for follow up and when to return to the Emergency Room. Prescriptions given: Discharge Note I have spoken with the patient and/or caregivers. I have explained the patient's condition, diagnosis and treatment plan based on the information available to me at this time. I have answered the patient's and/or caregiver's questions and addressed any concerns. The patient and/or caregivers have as good understanding of the patient's diagnosis, condition and treatment plan as can be expected at this point. The vital signs have been stable. The patient's condition is stable and appropriate for discharge from the emergency department. The patient will pursue further outpatient evaluation with the primary care physician or other designated or consulting physician as outlined in the disch arge instructions. The patient and/or caregivers are agreeable to this plan of care and follow-up instructions have been explained in detail. The patient and/or caregivers have received these instruction. The patient/and or caregivers are aware that any significant change in condition or worsening of symptoms should prompt an immediate return to this or the closest emergency department or call 911.
[2023-11-27 21:01] LABS: Absolute Neutrophil Ct (ANC) 4.52 x10^3/uL (1.56-6.13); BASOPHIL % 0.5 % (0.1-1.2); Basophil (Absolute #) 0.03 x10^3/uL (0.01-0.08); Eosinophil % 1.4 % (0.7-5.8); Eosinophil (Absolute #) 0.09 x10^3/uL (0.04-0.36); Hematocrit 37.9 % (34.1-44.9); Hemoglobin 12.6 g/dL (11.2-15.7); IMMATURE GRAN # 0.02 x10^3u/L (0.001-0.031); IMMATURE GRAN % 0.3 % (0.001-0.429); Lymphocyte (Absolute #) 1.16 x10^3/uL (1.18-3.74); Lymphocytes % 18.4 % (19.3-51.7); Mean Cell Volume 87.1 fL (79.4-94.8); Mean Corpuscular Hgb Concent. 33.2 g/dL (32.2-35.5); Monocyte (Absolute #) 0.47 x10^3/uL (0.24-0.86); Monocytes % 7.5 % (4.7-12.5); Neutrophil % 71.9 % (34.0-71.1); Platelet Count 281 x10^3/uL (182-369); Red Blood Count 4.35 x10^6/uL (3.93-5.22); Red Cell Distribution Width 14.5 % (11.7-14.4); White Blood Count 6.3 x10^3/uL (3.98-10.04)
[2023-11-27 21:27] LABS: ALBUMIN 4.1 g/dL (3.5-5.0); ANION GAP 13.5 MEQ/L (5-15); BILIRUBIN,TOTAL 0.4 mg/dL (0.2-1.3); Calcium 9.5 mg/dL (8.4-10.2); Creatinine 1 1.02 mg/dL (0.52-1.04); EST GLOMERULAR FILTRATION RATE 66.2 ML/MIN; Potassium 3.8 mmol/L (3.5-5.1); Total Protein 7.1 g/dL (6.3-8.2)
[2023-11-27 21:35] VITALS: BP 148/85; PULSE 63; RESP 18
== END 2023-11-27 21:44 | disposition home or self-care (01) ==
LOC: ED 19:50
DX: Z03.89 Encounter for observation for other suspected diseases and conditions ruled out (principal); F41.9 Anxiety disorder, unspecified; I10 Essential (primary) hypertension; Z79.899 Other long term (current) drug therapy
CPT/HCPCS: 36415; 80053; 84484; 85025; 93005; 99283

== ENCOUNTER 2024-06-29 23:16 | Emergency (ER) | payer OTHER ==
[2024-06-30 00:32] VITALS: TEMP 98.4
[2024-06-30 01:05] VITALS: BP 170/108; PULSE 80; RESP 14; O2SAT 98
--- NOTE | 2024-06-30 01:17 | ERPHSYRPT ---
- History of Present Illness Time Seen by Provider: 06/30/24 00:36 Source: patient Exam Limitations: no limitations Patient Subjective Stated Complaint: had a tooth pulled today in [place] and had a temp of 100.0 at home and called the dentist and he informed her to come to the ER since she had a temp. Pt did not take anything for the fever. Triage Nursing Assessment: Pt ambulated into ER wihtout diff. Pt c/o fever/chills after having a tooth pulled today at [place]. Pt's temp was 100.0 at home and she called the dentist and they told her to come to the ER. Pt is afebrile at this time 98.4. Pt denies any pain. Pt takes cefdinir 300mg po daily for propohylaxis for UTI. Physician History: 54-year-old female with history of anxiety, hypertension who had her right upper molar pulled out this afternoon at [place] [facility] presented in the ER when she checked at home and her temperature was 100.0. Patient called the dentist who recommended to be seen in the ER. Patient has history of recurrent UTI and is on Omnicef 300 mg daily chronically. Patient denies any pain or swelling in the area of tooth pulled. No chills. Patient denies any URI symptoms. No cough congestion. Patient temperature is 98.4 on presentation in the ER. She has not taken any zqdd-nyp-mdlahis medications since her temperature checked at home. Patient is not in any distress. Lungs clear to auscultation. Did not appreciate any swelling around area of tooth pulled. Has clot/plug when in place. No bleeding. I do not think patient needs to be placed on another antibiotics and specially if she does not have fever in here despite not taking any gyiw-vye-midwvwd medications. She is taking Omnicef and recommended follow-up with dentist in the morning and if has fever again will be she needs antibiotics. Also it is a little too early to get infection at the tooth extraction site which is less than 10 hours. Discussed signs symptoms of worsening needing return to ER which she seems understanding. Stable for discharge. Allergies/Adverse Reactions: Penicillins Allergy (Unknown, Verified 06/30/24 00:39) amlodipine [From [facility]] Allergy (Verified 06/30/24 00:39) lisinopril Allergy (Verified 06/30/24 00:39) naproxen Allergy (Verified 06/30/24 00:39) nausea prochlorperazine [From Compazine] Allergy (Verified 06/30/24 00:39) vomiting Home Medications: ALPRAZolam [Xanax 0.25 mg] 0.5 mg PO QID 03/12/16 [History] Buspirone HCl 15 mg PO TID 03/12/16 [History] Losartan Potassium 50 mg PO QAM 03/12/16 [History] Metoprolol Tartrate 12.5 mg PO BID 03/12/16 [History] norethindrone ac-eth estradioL [Junel 1 mg-20 Mcg Tablet] 1 ea PO DAILY 03/12/16 [History] Cefdinir 300 mg PO DAILY 10/28/23 [History] Levothyroxine Sodium 50 Mcg [Synthroid 50 Mcg] 50 mcg PO DAILY 10/28/23 [History] Losartan Potassium 25 mg PO HS 10/28/23 [History] PANTOPRAZOLE 40 mg Tablet [Protonix 40MG Tablet] 40 mg PO QAM 10/28/23 [History] Potassium Chloride 20 Meq [Klor-Con 20 MEQ] 40 meq PO DAILY 10/28/23 [History] Hx Tetanus, Diphtheria Vaccination/Date Given: Yes Hx Influenza Vaccination/Date Given: No Hx Pneumococcal Vaccination/Date Given: No Travel Risk - International Travel Have you traveled outside of the country in past 3 weeks: No - Emerging Infectious Disease Are you exhibiting symptoms associated with any current EIDs: No Symptoms: Fever - Review of Systems Constitutional: Fever Eyes: No Symptoms Ears, Nose, & Throat: Loose Teeth Respiratory: No Symptoms Cardiac: No Symptoms Abdominal/Gastrointestinal: No Symptoms Genitourinary Symptoms: No Symptoms Musculoskeletal: No Symptoms Skin: No Symptoms Neurological: No Symptoms Psychological: Anxiety - Past Medical History Pertinent Past Medical History: Yes Neurological History: No Pertinent History ENT History: No Pertinent History Cardiac History: Hypertension Respiratory History: No Pertinent History Endocrine Medical History: No Pertinent History Musculoskeletal History: No Pertinent History GI Medical History: GERD, Gallbladder Disease History: Other Psycho-Social History: Anxiety Female Reproductive Disorders: No Pertinent History Other Medical History: poly cystic kidney disease, kidney stones, free floating cysts to abd area - Past Surgical History Past Surgical History: Yes Neuro Surgical History: No Pertinent History Cardiac: No Pertinent History Respiratory: No Pertinent History Gastrointestinal: Cholecystectomy Genitourinary: Other Musculoskeletal: No Pertinent History Female Surgical History: No Pertinent History Other Surgical History: Kidney stone removal - Female History Hx Last Menstrual Period: . Hx Now: No - Social History Smoking Status: Never smoker Exposure to second hand smoke: No Drug Use: none - Social Determinants of Health Will the patient participate in the screening: Yes Do you worry about a steady place to live?: No Do you have any problems with any of the following?: No known problems In the past 12 months,have you had to go without utilities?: No Transportation Issues: No Has anyone in your support network made you feel unsafe?: No Have you or anyone in your house had to go w/o enough food: No - Nursing Vital Signs Nursing Vital Signs: Initial Vital Signs Temperature 98.4 F 06/30/24 00:31 Pulse Rate 79 06/30/24 00:31 Respiratory Rate 20 06/30/24 00:31 Blood Pressure 179/96 06/30/24 00:31 O2 Sat by Pulse Oximetry 99 06/30/24 00:31 Pain Scale Pain Intensity 0 - Physical Exam General Appearance: no apparent distress, alert Eye Exam: PERRL/EOMI ENT Exam: no apparent trauma Neck Exam: normal inspection, non-tender, supple, full range of motion Respiratory Exam: normal breath sounds, lungs clear Cardiovascular/Chest Exam: normal heart sounds, regular rate/rhythm Extremity Exam: non-tender, normal range of motion Neurologic Exam: alert, oriented x 3, cooperative, auditing specialist II-XII nml as tested Skin Exam: normal color SpO2 Interpretation: normal SpO2: 98 O2 Delivery: Room Air - Progress Progress: improved Progress Note: 06/30/24 01:15 54-year-old female with history of anxiety, hypertension who had her right upper molar pulled out this afternoon at [place] [facility] presented in the ER when she checked at home and her temperature was 100.0. Patient called the dentist who recommended to be seen in the ER. Patient has history of recurrent UTI and is on Omnicef 300 mg daily chronically. Patient denies any pain or swelling in the area of tooth pulled. No chills. Patient denies any URI symptoms. No cough congestion. Patient temperature is 98.4 on presentation in the ER. She has not taken any mids-fes-imcltun medications since her temperature checked at home. Patient is not in any distress. Lungs clear to auscultation. Did not appreciate any swelling around area of tooth pulled. Has clot/plug when in place. No bleeding. I do not think patient needs to be placed on another antibiotics and specially if she does not have fever in here despite not taking any vbmy-ydc-zbfyzqn medications. She is taking Omnicef and recommended follow-up with dentist in the morning and if has fever again will be she needs antibiotics. Also it is a little too early to get infection at the tooth extraction site which is less than 10 hours. Discussed signs symptoms of worsening needing return to ER which she seems understanding. Stable for discharge. Counseled pt/family regarding: diagnosis, need for follow-up Medical Desision Making - Diagnostic Testing Diagnostic test were ordered, analyzed, and reviewed by me: No - Risk of complications Low Risk: Low risk of morbidity from additional dx testing or treatment - Departure Departure Disposition: Home Clinical Impression: Hx of tooth extraction, Well adult exam Condition: Stable Critical Care Time: No Referrals: SHAE LOGAN PA [Primary Care Provider] - Follow up with PCP 1 day Instructions: Fever, Adult (DC) Additional Instructions: Take Tylenol/ibuprofen as needed. Follow-up with your primary care and dentist for reevaluation in the morning. Return to ER for increasing pain swelling redness/discharge/fever chills or if having bleeding from extraction site. Continue with your current antibiotics.
== END 2024-06-30 01:30 | disposition home or self-care (01) ==
LOC: ED 23:16
DX: Z03.89 Encounter for observation for other suspected diseases and conditions ruled out (principal); K08.409 Partial loss of teeth, unspecified cause, unspecified class; I10 Essential (primary) hypertension; Z79.899 Other long term (current) drug therapy
CPT/HCPCS: 99281

== ENCOUNTER 2024-08-12 23:50 | Emergency (ER) | payer OTHER ==
[2024-08-13 00:06] VITALS: TEMP 98.9
--- NOTE | 2024-08-13 00:25 | ERPHSYRPT ---
- History of Present Illness Time Seen by Provider: 08/13/24 00:05 Historian: patient Exam Limitations: no limitations Patient Subjective Stated Complaint: c/o right sided back and lower abdominal pain Triage Nursing Assessment: Patient brought into ED with c/o right sided back and right sided lower abdominal pain. patient states the pain started around 2029 and states the pain comes and goes. 5/10 pain, skin w/n/d, no deformities noted, has a hisory of kidney stones and cysts, gait steady, hypertensive, afebrile, patient doesn't appear to be in any distress at this time. Physician History: 54-year-old female presents to our ED for evaluation of right flank pain radiating to her back. Symptoms started tonight at approximately 8:30 PM. Patient reports a history of kidney stones. Pain rated 5 out of 10. Pain is intermittent. No specific worsening or improving factors. No trauma no fever. Patient adds that she recently had a large kidney cyst drained. Symptoms are moderate in intensity. Patient declined pain medication. No urinary complaints. Patient voices no other complaints or concerns at this time. Portions of this note were created with voice recognition technology. There may be grammatical, spelling, punctuation or sound alike errors Timing/Duration: today Activities at Onset: none Quality: aching Abdominal Pain Onset Location: flank (Right flank) Pain Radiation: back Severity of Pain-Max: moderate Severity of Pain-Current: mild Modifying Factors: Improves With: nothing Associated Symptoms: denies symptoms Previous symptoms: same symptoms as today Allergies/Adverse Reactions: Penicillins Allergy (Unknown, Verified 08/13/24 00:08) amlodipine [From Norvasc] Allergy (Verified 08/13/24 00:08) lisinopril Allergy (Verified 08/13/24 00:08) naproxen Allergy (Verified 08/13/24 00:08) nausea prochlorperazine [From Compazine] Allergy (Verified 08/13/24 00:08) vomiting hydrocodone Adverse Reaction (Verified 08/13/24 00:08) oxycodone Adverse Reaction (Verified 08/13/24 00:08) Home Medications: ALPRAZolam [Xanax 0.25 mg] 0.5 mg PO QID 03/12/16 [History] Buspirone HCl 15 mg PO TID 03/12/16 [History] Losartan Potassium 50 mg PO QAM 03/12/16 [History] Metoprolol Tartrate 12.5 mg PO BID 03/12/16 [History] norethindrone ac-eth estradioL [Junel 1 mg-20 Mcg Tablet] 1 ea PO DAILY 03/12/16 [History] Cefdinir 300 mg PO DAILY 10/28/23 [History] Levothyroxine Sodium 50 Mcg [Synthroid 50 Mcg] 50 mcg PO DAILY 10/28/23 [History] Losartan Potassium 25 mg PO HS 10/28/23 [History] PANTOPRAZOLE 40 mg Tablet [Protonix 40MG Tablet] 40 mg PO QAM 10/28/23 [History] Potassium Chloride 20 Meq [Klor-Con 20 MEQ] 40 meq PO DAILY 10/28/23 [History] Hx Tetanus, Diphtheria Vaccination/Date Given: Yes Hx Influenza Vaccination/Date Given: No Hx Pneumococcal Vaccination/Date Given: No Travel Risk - International Travel Have you traveled outside of the country in past 3 weeks: No - Emerging Infectious Disease Are you exhibiting symptoms associated with any current EIDs: No Symptoms: Fever - Review of Systems Constitutional: No Symptoms, No Fever, No Chills Eyes: No Symptoms Ears, Nose, & Throat: No Symptoms Respiratory: No Symptoms, No Cough, No Dyspnea Cardiac: No Symptoms, No Chest Pain, No Edema, No Syncope Abdominal/Gastrointestinal: No Symptoms, No Abdominal Pain, No Nausea, No Vomiting, No Diarrhea Genitourinary Symptoms: No Symptoms, No Dysuria Musculoskeletal: No Symptoms, No Back Pain, No Neck Pain Skin: No Symptoms, No Rash Neurological: No Symptoms, No Dizziness, No Focal Weakness, No Sensory Changes Psychological: No Symptoms Endocrine: No Symptoms Hematologic/Lymphatic: No Symptoms Immunological/Allergic: No Symptoms All Other Systems: Reviewed and Negative - Past Medical History Pertinent Past Medical History: Yes Neurological History: No Pertinent History ENT History: No Pertinent History Cardiac History: Hypertension Respiratory History: No Pertinent History Endocrine Medical History: Hypothyroidism Musculoskeletal History: No Pertinent History GI Medical History: GERD, Gallbladder Disease History: Other Psycho-Social History: Anxiety Female Reproductive Disorders: No Pertinent History Other Medical History: poly cystic kidney disease, kidney stones, free floating cysts to abd area, Hashimotos diseases - Past Surgical History Past Surgical History: Yes Neuro Surgical History: No Pertinent History Cardiac: No Pertinent History Respiratory: No Pertinent History Gastrointestinal: Cholecystectomy Genitourinary: Other Musculoskeletal: No Pertinent History Female Surgical History: No Pertinent History Other Surgical History: Kidney stone removal - Female History Hx Last Menstrual Period: unsure - Social History Smoking Status: Never smoker Exposure to second hand smoke: No Drug Use: none - Social Determinants of Health Will the patient participate in the screening: Yes Do you worry about a steady place to live?: No Do you have any problems with any of the following?: No known problems In the past 12 months,have you had to go without utilities?: No Transportation Issues: No Has anyone in your support network made you feel unsafe?: No Have you or anyone in your house had to go w/o enough food: No - Nursing Vital Signs Nursing Vital Signs: Initial Vital Signs Temperature 98.9 F 08/12/24 23:54 Pulse Rate 73 08/12/24 23:54 Respiratory Rate 18 08/12/24 23:54 Blood Pressure 196/101 08/12/24 23:54 O2 Sat by Pulse Oximetry 98 08/12/24 23:54 Pain Scale Pain Intensity [Right Back] 5 Pain Intensity 5 - Physical Exam General Appearance: no apparent distress, alert Eye Exam: PERRL/EOMI, eyes nml inspection Ears, Nose, Throat Exam: normal ENT inspection, pharynx normal, moist mucous membranes Neck Exam: normal inspection, full range of motion Respiratory Exam: normal breath sounds, lungs clear, No respiratory distress Cardiovascular Exam: regular rate/rhythm, normal heart sounds Gastrointestinal/Abdomen Exam: soft, No tenderness, No mass Back Exam: normal inspection, normal range of motion, No CVA tenderness, No vertebral tenderness Extremity Exam: normal inspection, normal range of motion, pelvis stable Neurologic Exam: alert, oriented x 3, cooperative, normal mood/affect, sensation nml, No motor deficits Skin Exam: normal color, warm, dry Lymphatic Exam: No adenopathy SpO2 Interpretation: normal SpO2: 98 O2 Delivery: Room Air - Course Nursing assessment & vital signs reviewed: Yes - CT Exams Abdomen/Pelvis CT Interpretation: Tele-radiologist Report (Multiple liver cysts renal cysts L5 spondylolysis) Ordered Tests: Active Orders 24 hr Category Date Time Status IV Insertion STAT Care 08/13/24 00:03 Active ABDOMEN AND PELVIS W/0 CONTRAS [CT] Stat Exams 08/13/24 00:03 Completed CBC W DIFF Stat Lab 08/13/24 00:25 Completed CMP Stat Lab 08/13/24 00:25 Completed UA W/RFX UR CULTURE Stat Lab 08/13/24 00:21 Completed Medication Summary Generic Name Dose Route Start Last Admin Trade Name Brendon PRN Reason Stop Dose Admin Sodium Chloride 1,000 mls @ 250 mls/hr 08/13/24 00:15 08/13/24 00:28 Sodium Chloride 0.9% 1000 Ml IV 09/12/24 00:14 250 mls/hr .Q4H QUYNH Administration Lab/Rad Data: Laboratory Result Diagrams 08/13/24 00:25 08/13/24 00:25 Laboratory Results 08/13/24 08/13/24 08/13/24 Range/Units 00: 00:25 00:21 WBC 8.1 (3.98-10.04) x10^3/uL RBC 4.52 (3.93-5.22) x10^6/uL Hgb 13.0 (11.2-15.7) g/dL Hct 38.9 (34.1-44.9) % MCV 86.1 (79.4-94.8) fL MCH 28.8 (25.6-32.2) pg MCHC 33.4 (32.2-35.5) g/dL RDW 14.7 H (11.7-14.4) % Plt Count 336 (182-369) x10^3/uL MPV 9.9 (9.4-12.3) fL Gran % 66.2 (34.0-71.1) % Immature Gran % (Auto) 0.2 (0.001-0.429) % Nucleat RBC Rel Count 0.0 (0.00-0.2) % Eos # (Auto) 0.27 (0.04-0.36) x10^3/uL Immature Gran # (Auto) 0.02 (0.001-0.031) x10^3u/L Absolute Lymphs (auto) 1.80 (1.18-3.74) x10^3/uL Absolute Monos (auto) 0.62 (0.24-0.86) x10^3/uL Absolute Nucleated RBC 0.00 (0.00-0.012) x10^3u/L Lymphocytes % 22.1 (19.3-51.7) % Monocytes % 7.6 (4.7-12.5) % Eosinophils % 3.3 (0.7-5.8) % Basophils % 0.6 (0.1-1.2) % Absolute Granulocytes 5.37 (1.56-6.13) x10^3/uL Basophils # 0.05 (0.01-0.08) x10^3/uL Sodium 140 (135-145) mmol/L Potassium 3.6 (3.5-5.1) mmol/L Chloride 105 (98-107) mmol/L Carbon Dioxide 22 (22-30) mmol/L Anion Gap 15.3 H (5-15) MEQ/L BUN 13 (7-17) mg/dL Creatinine 0.90 (0.52-1.04) mg/dL Estimated GFR 76.4 ML/MIN Glucose 109 H (74-106) mg/dL Calcium 9.2 (8.4-10.2) mg/dL Total Bilirubin 0.50 (0.2-1.3) mg/dL AST 23 (14-36) U/L ALT 17 (0-35) U/L Alkaline Phosphatase 117 (38-126) U/L Serum Total Protein 7.5 (6.3-8.2) g/dL Albumin 4.3 (3.5-5.0) g/dL Urine Color Yellow (Yellow) Urine Appearance Clear (Clear) Urine pH 6.0 (4.6-8.0) Ur Specific [place] 1.015 (1.005-1.030) Urine Protein Trace A (Negative) Urine Glucose (UA) Negative (Negative) mg/dL Urine Ketones Negative (Negative) Urine Blood Negative (Negative) Urine Nitrite Negative (Negative) Urine Bilirubin Negative (Negative) Urine Urobilinogen 0.2 (0.2) mg/dL Ur Leukocyte Esterase Trace A (Negative) U Hyaline Cast (Auto) NONE SEEN (0-2) /LPF Urine Microscopic RBC 0-2 (0-5) /HPF Urine Microscopic WBC 3-5 (0-5) /HPF Ur Epithelial Cells Rare (None Seen) /HPF Urine Bacteria None Seen (None Seen) /HPF Urine Culture Reflexed NO (NO) - Progress Progress: improved Progress Note: 54-year-old female with known history of multiple intra-abdominal cysts with 1 recently being drained presents to our ED for evaluation of right-sided flank pain radiating to her back. Patient has a history of kidney stones and felt that her pain may be due to kidney stones. CT abdomen pelvis reveals multiple liver and renal cyst. Additionally there is spondylolysis observed. No obstructive uropathy. Laboratory workup otherwise nonremarkable. In light of the multiple cysts on the liver and kidney patient's pain is likely emanating from these cysts. No indication for further workup at this time. Will discharge home. Patient declined pain medication. Patient agrees to follow-up with her primary care doctor within 48 hours for reevaluation. Differential diagnosis for flank pain is urinary tract infection, obstructive uropathy, intra-abdominal cyst. Colitis, GI malignancy Portions of this note were created with voice recognition technology. There may be grammatical, spelling, punctuation or sound alike errors Complexity of problem addressed is moderate acute complicated. No critical care time. Complex of data reviewed and analyzed as moderate. Test ordered test reviewed results analyzed and correlated clinically with history and physical exam. Risk of complication and or risk of morbidity/mortality of patient management is low. Vital stable. Time spent in discharge patient is approximately 15 minutes. Plan of care established for shared decision making. No social determinants of health present to impede follow-up. Portions of this note were created with voice recognition technology. There may be grammatical, spelling, punctuation or sound alike errors 08/13/24 01:13 Counseled pt/family regarding: lab results, diagnosis, need for follow-up, rad results - Departure Departure Disposition: Home Clinical Impression: Liver cyst, Renal cyst, L5 spondylolysis Condition: Stable Critical Care Time: No Referrals: SHAE LOGAN PA [Primary Care Provider, UNKNOWN] - Follow up/PCP as directed Additional Instructions: Discharge/Care Plan ABDI ELLIS was seen on 08/13/24 in the Emergency Room. The patient was counseled regarding Diagnosis,Lab results, Imaging studies, need for follow up and when to return to the Emergency Room. Prescriptions given: Discharge Note I have spoken with the patient and/or caregivers. I have explained the patient's condition, diagnosis and treatment plan based on the information available to me at this time. I have answered the patient's and/or caregiver's questions and addressed any concerns. The patient and/or caregivers have as good understanding of the patient's diagnosis, condition and treatment plan as can be expected at this point. The vital signs have been stable. The patient's condition is stable and appropriate for discharge from the emergency department. The patient will pursue further outpatient evaluation with the primary care physician or other designated or consulting physician as outlined in the discharge instructions. The patient and/or caregivers are agreeable to this plan of care and follow-up instructions have been explained in detail. The patient and/or caregivers have received these instruction. The patient/and or caregivers are aware that any significant change in condition or worsening of symptoms should prompt an immediate return to this or the closest emergency department or call 911.
[2024-08-13 00:27] LABS: Absolute Neutrophil Ct (ANC) 5.37 x10^3/uL (1.56-6.13); BASOPHIL % 0.6 % (0.1-1.2); Basophil (Absolute #) 0.05 x10^3/uL (0.01-0.08); Eosinophil % 3.3 % (0.7-5.8); Eosinophil (Absolute #) 0.27 x10^3/uL (0.04-0.36); Hematocrit 38.9 % (34.1-44.9); IMMATURE GRAN # 0.02 x10^3u/L (0.001-0.031); IMMATURE GRAN % 0.2 % (0.001-0.429); Lymphocytes % 22.1 % (19.3-51.7); Mean Cell Volume 86.1 fL (79.4-94.8); Mean Corpuscular Hemoglobin 28.8 pg (25.6-32.2); Mean Corpuscular Hgb Concent. 33.4 g/dL (32.2-35.5); Mean Platelet Volume 9.9 fL (9.4-12.3); Monocyte (Absolute #) 0.62 x10^3/uL (0.24-0.86); Monocytes % 7.6 % (4.7-12.5); Neutrophil % 66.2 % (34.0-71.1); Platelet Count 336 x10^3/uL (182-369); Red Blood Count 4.52 x10^6/uL (3.93-5.22); Red Cell Distribution Width 14.7 % (11.7-14.4); White Blood Count 8.1 x10^3/uL (3.98-10.04)
[2024-08-13] MEDS ORDERED: Sodium Chloride 0.9% 1000 ML 1,000 ML ONE (00:28)
[2024-08-13] MEDS: Sodium Chloride 0.9% 1000 ML 1,000 ML IV SCH (00:28)
[2024-08-13 00:40] LABS: ALBUMIN 4.3 g/dL (3.5-5.0); ANION GAP 15.3 MEQ/L (5-15); BILIRUBIN,TOTAL 0.5 mg/dL (0.2-1.3); Calcium 9.2 mg/dL (8.4-10.2); Creatinine 1 0.9 mg/dL (0.52-1.04); EST GLOMERULAR FILTRATION RATE 76.4 ML/MIN; Potassium 3.6 mmol/L (3.5-5.1); Total Protein 7.5 g/dL (6.3-8.2)
[2024-08-13 00:48] LABS: Appearance Clear (Clear); Bacteria None Seen /HPF (None Seen); Bilirubin Negative (Negative); Blood Negative (Negative); Epithelial Cells Rare /HPF (None Seen); Glucose, Urine Negative (Negative); Hyaline Casts NONE SEEN /LPF (0-2); Ketones Negative (Negative); Leukocyte Esterase Trace (Negative); Nitrite Negative (Negative); Protein,Urine Dip Trace (Negative); RBC 0-2 /HPF (0-5); Specific Gravity 1.015 (1.005-1.030); Urobilinogen 0.2 mg/dL (0.2)
--- NOTE | 2024-08-13 01:06 | XRAY ---
CLINICAL HISTORY: flank pain COMPARISON: 22:38:07 [employer] TECHNIQUE: Contiguous axial images were obtained from the level of the diaphragm to the pubic symphysis without intravenous or oral contrast. Coronal and sagittal reconstructions were likewise performed and indicated to increase the sensitivity for detecting clinically relevant pathology. CT scan was performed according to ALARA (as low as reasonable achievable). FINDINGS: The visualized lung bases are clear. Evaluation of the abdominal and pelvic visceral organs is limited without intravenous contrast. Multiple cysts of varying sizes in the both the lobes with some of them having exophytic component. The largest cyst in the left lobe with exophytic component measuring 11.7cm diameter.- slightly enlarged in size as compared to prior. Thee are few cysts with shows sepate with thin calcification. There are multiple cysts of varying size in both the kidneys , predominantly in the right kidney. The largest cysts in the right kidney with exophytic component measuring 11cm. One out of two large cyst noted at the lower pole of right kidney- appears reduced in size / could be interval rupture, and another remained static which is extending up to the pelvis causes displacement of adjacent bowel loops. Mild renal pelvis dilatation on right side. Left pelvis is probably dilated/parapelvic cyst. Few tiny gravels are noted involving mid and lower pole calyx of left kidney Few cysts in the upper pole left kidney shows wall calcification. The unenhanced spleen, pancreas, and adrenal glands are grossly unremarkable. The gallbladder is not well visualized- kindly correlate clinically. The ureters are normal in caliber. No adenopathy or fluid collections are seen. No evidence of focal or diffuse bowel wall thickening or evidence of bowel obstruction is seen. No evidence of inflamed appendix. The aorta is normal in caliber. The urinary bladder is normal in contour. Pelvic viscera are grossly unremarkable. No aggressive appearing osseous lesions are identified. Lumbar spondylosis with bilateral par articularis defect of L5 vertebra. IMPRESSION: 1. Multiple cysts of varying size in the liver.- few of the cyst appears slightly enlarged in size. 2. Multiple large cysts bilateral kidneys as described. One out of two large cyst noted at the lower pole of right kidney- appears reduced in size / could be interval rupture, and another remained static which is extending up to the pelvis causes displacement of adjacent bowel loops. Remaining cyst appears more or less static. 3. Few tiny gravels are noted involving mid and lower pole calyx of left kidney- stable. 4. The gallbladder is not well visualized- kindly correlate clinically. 5. Lumbar spondylosis with spondylolysis at L5 vertebra.-stable. Electronically Signed by: Renan Brown MD. (08/13/2024 01:03:27 EDT)
[2024-08-13 01:34] VITALS: O2SAT 98
[2024-08-13 01:38] VITALS: BP 175/127; PULSE 67; RESP 17
== END 2024-08-13 01:45 | disposition home or self-care (01) ==
LOC: ED 23:50
DX: K76.89 Other specified diseases of liver (principal); N28.1 Cyst of kidney, acquired; M47.896 Other spondylosis, lumbar region; Z79.899 Other long term (current) drug therapy; R10.9 Unspecified abdominal pain; I10 Essential (primary) hypertension
CPT/HCPCS: 36415; 74176; 80053; 81001; 85025; 99284